=== PATIENT | female | born 1970 | race Caucasian/White ===

== ENCOUNTER 2018-01-03 17:58 | Inpatient (IN) | payer SELFPAY ==
[~2018-01-03] VITALS: Ht 177.8 cm; Wt 87.3 kg
[2018-01-03 17:57] VITALS: O2SAT 98
[~2018-01-03 17:58] MED LIST: LACTATED RINGER'S 1000 ML INJ 2,000 ML IV ONE; LIDOCAINE HCL 1% PF 5 ML SYRINGE OTHER ONE; NORMOSOL R INJ 1,000 ML IV ONE; PHENYLEPH/NS 1000 MCG/10 ML SYR IV ONE; PHENYLEPHRINE HCL 10 MG/ML VIAL IV ONE; PROPOFOL 200 MG/20 ML AMP IV ONE; ROCURONIUM INJ 50 MG/5 ML SYRINGE IV PUSH ONE; SODIUM CHLORIDE 0.9% 20 ML VIAL IV ONE; STERILE WATER FOR INJECTION 20 ML VIAL IV ONE; SUCCINYLCHOLINE CHLORIDE 100 MG/5 ML SYRINGE IV PUSH ONE; VECURONIUM BROMIDE 20 MG VIAL IV ONE; ePHEDrine/NS 25 MG/5 ML SYRINGE IV ONE
[2018-01-03] MEDS ORDERED: IOHEXOL 350 MG/ML 10 ML VIAL (for RAD DIAG) IVCONTRAST ONE (17:59)
[2018-01-03] MEDS ORDERED: ceFAZolin INJ 1,000 MG VIAL ONE (18:15)
[2018-01-03] MEDS ORDERED: VANCOMYCIN HCL 1000 MG VIAL ONE (18:15)
[2018-01-03] MEDS ORDERED: ceFAZolin 2 GM PREMIX 50 ML ONE (18:35)
[2018-01-03 18:40] LABS: AUTOMATED NEUTROPHIL # 11.9 TH/MM3 (1.8-7.7); BASOPHIL # 0.1 TH/MM3 (0-0.2); BASOPHIL % 0.4 % (0.0-2.0); EOSINOPHIL # 0.1 TH/MM3 (0-0.4); EOSINOPHIL % 0.4 % (0.0-4.0); HEMATOCRIT 42.7 % (35.0-46.0); HEMOGLOBIN 14.3 GM/DL (11.6-15.3); LYMPH % 21.7 % (9.0-44.0); LYMPHOCYTE # 3.5 TH/MM3 (1.0-4.8); MEAN CORPUSCULAR HEMOGLOBIN 34.1 PG (27.0-34.0); MEAN CORPUSCULAR HGB CONC 33.4 % (32.0-36.0); MEAN PLATELET VOLUME 10.2 FL (7.0-11.0); MONO % 4.9 % (0.0-8.0); MONOCYTE # 0.8 TH/MM3 (0-0.9); NEUT % 72.6 % (16.0-70.0); PLATELET COUNT 217 TH/MM3 (150-450); RED BLOOD COUNT 4.19 MIL/MM3 (4.00-5.30); RED CELL DISTRIBUTION WIDTH 12.7 % (11.6-17.2); WHITE BLOOD COUNT 16.4 TH/MM3 (4.0-11.0)
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
[2018-01-03 18:48] LABS: PROTHROMBIN TIME - PATIENT 9.8 SEC (9.8-11.6)
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
[2018-01-03] MEDS ORDERED: LIDOCAINE HCL 1% PF 5 ML AMPULE ONE (19:29)
[2018-01-03] MEDS ORDERED: VASOPRESSIN 20 UNITS/ML VIAL ONE (19:31)
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
[2018-01-03 19:44] LABS: HEMOGLOBIN 8.3 GM/DL (11.6-15.3)
[2018-01-03 19:51] LABS: INTERNATIONAL NORMALIZED RATIO 1.3 RATIO; PROTHROMBIN TIME - PATIENT 13.6 SEC (9.8-11.6)
[2018-01-03 19:55] LABS: BICARBONATE 20.6 MEQ/L (21.0-32.0); CALCIUM 8.4 MG/DL (8.5-10.1); CREATININE 0.6 MG/DL (0.50-1.00)
[2018-01-03] MEDS ORDERED: PHENYLEPHRINE HCL 10 MG/ML VIAL ONE (20:01)
[2018-01-03 20:30] VITALS: BP_SYST 118; BP_SYST 140; BP_DIAS 43; BP_DIAS 93; PULSE 132; RESP 20; TEMP 98.7; O2SAT 100
[2018-01-03] MEDS ORDERED: MIDAZOLAM HCL 2 MG/2 ML VIAL ONE (20:55)
[2018-01-03] MEDS ORDERED: PROPOFOL 500 MG/50 ML INJ 50 ML ONE (20:59)
[2018-01-03] MEDS ORDERED: PROPOFOL 1000 MG/100 ML INJ 100 ML IV PRN (21:00)
[2018-01-03] MEDS ORDERED: CLINDAMYCIN INJ 600 MG in SODIUM CHLORIDE 0.9% INJ 50 ML IV SCH (21:00)
[2018-01-03] MEDS ORDERED: Post-op Orders (for Pharmacy) XX ONE (21:00)
[2018-01-03] MEDS ORDERED: SODIUM CHLORIDE 0.9% FLUSH 10 ML FLUSH IV FLUSH PRN (21:00)
[2018-01-03] MEDS ORDERED: fentaNYL DRIP 250 ML IV PRN (21:00)
[2018-01-03] MEDS ORDERED: NALOXONE HCL 0.4 MG/ML AMP IV PUSH PRN (21:00)
[2018-01-03] MEDS: [UNRECOGNIZED DRUG - OTHER] OTHER SCH ×2 (21:15→21:30)
[2018-01-03 21:17] LABS: AUTOMATED NEUTROPHIL # 6.7 TH/MM3 (1.8-7.7); BASOPHIL % 0.4 % (0.0-2.0); EOSINOPHIL % 0.1 % (0.0-4.0); HEMATOCRIT 28.8 % (35.0-46.0); HEMOGLOBIN 9.9 GM/DL (11.6-15.3); LYMPH % 8.7 % (9.0-44.0); LYMPHOCYTE # 0.7 TH/MM3 (1.0-4.8); MEAN CELL VOLUME 88.7 FL (80.0-100.0); MEAN CORPUSCULAR HEMOGLOBIN 30.6 PG (27.0-34.0); MEAN CORPUSCULAR HGB CONC 34.5 % (32.0-36.0); MEAN PLATELET VOLUME 8.2 FL (7.0-11.0); MONO % 4.7 % (0.0-8.0); MONOCYTE # 0.4 TH/MM3 (0-0.9); NEUT % 86.1 % (16.0-70.0); PLATELET COUNT 88 TH/MM3 (150-450); RED BLOOD COUNT 3.25 MIL/MM3 (4.00-5.30); RED CELL DISTRIBUTION WIDTH 17.4 % (11.6-17.2); WHITE BLOOD COUNT 7.8 TH/MM3 (4.0-11.0)
[2018-01-03 21:26] LABS: INTERNATIONAL NORMALIZED RATIO 1.2 RATIO
[2018-01-03 21:55] LABS: ALKALINE PHOSPHATASE 56 U/L (45-117); ALT (GPT) 26 U/L (10-53); AST (GOT) 36 U/L (15-37); BICARBONATE 24.7 MEQ/L (21.0-32.0); BLOOD UREA NITROGEN 6 MG/DL (7-18); CALCIUM 10.5 MG/DL (8.5-10.1); CHLORIDE 106 MEQ/L (98-107); CREATININE 0.59 MG/DL (0.50-1.00); GLOMERULAR FILTRATION RATE 88 ML/MIN (>89); GLUCOSE,RANDOM 168 MG/DL (74-106); MAGNESIUM 1.9 MG/DL (1.5-2.5); PHOSPHORUS 5.8 MG/DL (2.5-4.9); SODIUM (NA) 147 MEQ/L (136-145); TOTAL BILIRUBIN ADULT 0.5 MG/DL (0.2-1.0)
[2018-01-03] MEDS ORDERED: NOREPINEPHRINE-DEXTROSE DRIP 250 ML IV ONE (21:56)
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
--- NOTE | 2018-01-03 21:59 | RADRPT ---
EXAM DATE/TIME: 01/03/2018 21:04 [facility] COMPARISON: No previous studies available for comparison. INDICATIONS : Post traumatic amputation. MEDICAL HISTORY : Unobtainable. SURGICAL HISTORY : Unobtainable. ENCOUNTER: Subsequent ACUITY: 1 day PAIN SCORE: Non-responsive. LOCATION: Left Femur. FINDINGS: 4 images of the left femur show a dictation at the distal diaphysis. A few small bone shards are seen just distal to the amputated femoral diaphysis. No retained foreign bodies otherwise. Left hip is un remarkable. CONCLUSION: Amputation of the distal femur as detailed above. Chaparro Reeves Jr., MD on January 03, 2018 at 21:56 Board Certified Radiologist. This report was verified electronically.
[2018-01-03 22:00] VITALS: PULSE 149
[2018-01-03] MEDS ORDERED: SODIUM CHLOR 0.9% 250 ML INJ 250 ML IV ONE (22:00)
[2018-01-03 22:01] LABS: BANDS 19 % (0-6); LYMPHOCYTES 8 % (9-44); METAMYELOCYTES 2 % (0-1); MONOCYTES 3 % (0-8); NEUTROPHIL # MANUAL DIFF 6.9 TH/MM3 (1.8-7.7); POLYS (SEG NEUTROPHILS) 68 % (16-70)
[2018-01-03] MEDS ORDERED: ICU - CALL ORDERING PHYSICIAN PRN (22:30)
[2018-01-03] MEDS ORDERED: ICU - SODIUM PHOSPHATE 30 MMOL/NS 250 ML IV PRN ×2 (22:30)
[2018-01-03] MEDS ORDERED: ICU - D/C ICU ELECTROLYTE ORDERS PRN (22:30)
[2018-01-03] MEDS ORDERED: ICU - MAGNESIUM OXIDE 400 MG TAB PO PRN (22:30)
[2018-01-03] MEDS ORDERED: ICU - MAGNESIUM SULFATE 4 GM/NS 100 ML IV PRN ×2 (22:30)
[2018-01-03] MEDS ORDERED: ICU - MAGNESIUM SULFATE 2 GM/NS 100 ML IV PRN ×2 (22:30)
[2018-01-03] MEDS ORDERED: ICU - POTASSIUM PHOSPHATE MONOBASIC 500 MG TAB PO PRN (22:30)
[2018-01-03] MEDS ORDERED: ICU - POTASSIUM PHOSPHATE 30 MMOL/NS 250 ML IV PRN ×2 (22:30)
[2018-01-03] MEDS ORDERED: POTASSIUM CHLORIDE 25 MEQ EFFERVESCENT TAB PO PRN (22:30)
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
[2018-01-03] MEDS: CLINDAMYCIN 600 MG/NS PREMIX 50 ML IV SCH (22:44)
[2018-01-03] MEDS: PANTOPRAZOLE SODIUM 40 MG VIAL IV PUSH SCH (22:45)
[2018-01-03] MEDS: SODIUM CHLORIDE 0.9% FLUSH 10 ML FLUSH IV FLUSH SCH (22:45)
[2018-01-03] MEDS: SODIUM CHLOR 0.9% 1000 ML INJ 1,000 ML IV SCH (22:46)
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
[2018-01-03] MEDS ORDERED: TERBUTALINE INJ 1 MG/ML AMP SQ PRN (23:00)
[2018-01-03] MEDS: fentaNYL DRIP 250 ML IV PRN (23:06)
[2018-01-03] MEDS: PROPOFOL 1000 MG/100 ML INJ 100 ML IV PRN (23:06)
[2018-01-03] MEDS: ICU - POTASSIUM CHLORIDE/AQUEOUS SOLN 20 MEQ/100 ML IVPB IV PRN (23:07)
[2018-01-03] MEDS: NOREPINEPHRINE-DEXTROSE DRIP 250 ML IV PRN (23:07)
[2018-01-04] VITALS (21 sets, daily range): BP systolic 93–122; BP diastolic 46–71; PULSE 95–126; RESP 19–50; TEMP 99.3–101.9; O2SAT 98–100
[2018-01-04] MEDS: ICU - POTASSIUM CHLORIDE/AQUEOUS SOLN 20 MEQ/100 ML IVPB IV PRN (02:17)
[2018-01-04] MEDS: PROPOFOL 1000 MG/100 ML INJ 100 ML IV PRN ×3 (03:28→10:08)
[2018-01-04] MEDS: SODIUM CHLOR 0.9% 1000 ML INJ 1,000 ML IV SCH ×3 (03:44→17:54)
[2018-01-04] MEDS: CLINDAMYCIN 600 MG/NS PREMIX 50 ML IV SCH (06:30)
[2018-01-04] MEDS ORDERED: RESP: ALBUTEROL 2.5 MG/IPRATROPIUM 0.5 MG NEB (PRN) NEB (07:15)
[2018-01-04] MEDS ORDERED: BISACODYL 10 MG SUPP RECTAL PRN (07:15)
[2018-01-04] MEDS ORDERED: CALCIUM CHLORIDE 10% SOLN 1 GRAM/10 ML SYR ONE ×3 (07:20→07:26)
[2018-01-04] MEDS ORDERED: SODIUM BICARBONATE 8.4% INJ 50 MEQ/50 ML SYR ONE ×2 (07:21→07:25)
[2018-01-04] MEDS: NOREPINEPHRINE-DEXTROSE DRIP 250 ML IV PRN ×3 (07:51→23:50)
[2018-01-04 08:25] LABS: HEMATOCRIT 21.9 % (35.0-46.0); HEMOGLOBIN 7.7 GM/DL (11.6-15.3); MEAN CELL VOLUME 88.1 FL (80.0-100.0); MEAN CORPUSCULAR HEMOGLOBIN 30.8 PG (27.0-34.0); MEAN PLATELET VOLUME 9.1 FL (7.0-11.0); PLATELET COUNT 74 TH/MM3 (150-450); RED BLOOD COUNT 2.49 MIL/MM3 (4.00-5.30); RED CELL DISTRIBUTION WIDTH 17.4 % (11.6-17.2); WHITE BLOOD COUNT 5.8 TH/MM3 (4.0-11.0)
[2018-01-04] MEDS: LACTULOSE SYRUP 20 GM/30 ML CUP PO SCH (09:00)
[2018-01-04] MEDS: RESP: ALBUTEROL 2.5 MG/IPRATROPIUM 0.5 MG NEB (SCH) NEB ×3 (09:03→20:40)
[2018-01-04 09:19] LABS: BICARBONATE 28.3 MEQ/L (21.0-32.0); CALCIUM 7.3 MG/DL (8.5-10.1); CREATININE 0.84 MG/DL (0.50-1.00)
[2018-01-04] MEDS: [UNRECOGNIZED DRUG - OTHER] OTHER SCH ×3 (09:30→23:53)
[2018-01-04 09:53] LABS: CALCIUM-PROTEIN CORRECTED 9.2 MG/DL (8.5-10.1); TOTAL PROTEIN 3.9 GM/DL (6.4-8.2)
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
[2018-01-04] MEDS: fentaNYL DRIP 250 ML IV PRN (10:08)
[2018-01-04] MEDS ORDERED: SODIUM CHLOR 0.9% 250 ML INJ 250 ML IV ONE (10:15)
[2018-01-04] MEDS ORDERED: MIDAZOLAM 100 MG/100 ML INJ 100 ML IV PRN (10:15)
[2018-01-04] MEDS ORDERED: GENTAMICIN 80 MG PREMIX 100 ML IV SCH (11:00)
[2018-01-04] MEDS ORDERED: BACITRACIN TOP OINT 15 GM TUBE TOPICAL PRN (11:45)
[2018-01-04] MEDS: GENTAMICIN INJ 80 MG in SODIUM CHLORIDE 0.9% INJ 100 ML IV SCH ×2 (13:14→20:54)
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
[2018-01-04] MEDS: MIDAZOLAM 50 MG/NS 50 ML DRIP Premix IV PRN (14:48)
[2018-01-04] MEDS: SODIUM CHLORIDE 0.9% FLUSH 10 ML FLUSH IV FLUSH SCH (19:36)
[2018-01-04] MEDS: CHLORHEXIDINE 0.12% (ORAL KIT) 15 ML CUP MT SCH (19:36)
[2018-01-04] MEDS: DOCUSATE SODIUM 50 MG/SENNA 8.6 MG TAB PO SCH ×2 (20:54→21:00)
[2018-01-04] MEDS: ACETAMINOPHEN 1000 MG/100 ML 100 ML IV PRN (20:54)
[2018-01-04] MEDS: PANTOPRAZOLE SODIUM 40 MG VIAL IV PUSH SCH (20:54)
[2018-01-04] MEDS ORDERED: SODIUM CHLOR 0.9% 1000 ML INJ 1,000 ML IV ONE ×2 (21:53→22:45)
[2018-01-04] MEDS ORDERED: ALBUMIN 5% INJ 500 ML IV ONE (23:00)
[2018-01-05] VITALS (20 sets, daily range): BP systolic 94–132; BP diastolic 46–82; PULSE 87–126; RESP 12–20; TEMP 100–102.2; O2SAT 97–100
[2018-01-05] MEDS: MIDAZOLAM 50 MG/NS 50 ML DRIP Premix IV PRN ×2 (02:22→14:54)
[2018-01-05] MEDS: RESP: ALBUTEROL 2.5 MG/IPRATROPIUM 0.5 MG NEB (SCH) NEB ×3 (03:59→20:26)
[2018-01-05 04:20] LABS: AUTOMATED NEUTROPHIL # 3.9 TH/MM3 (1.8-7.7); BASOPHIL % 0.6 % (0.0-2.0); EOSINOPHIL # 0.1 TH/MM3 (0-0.4); EOSINOPHIL % 1.4 % (0.0-4.0); HEMATOCRIT 23.4 % (35.0-46.0); HEMOGLOBIN 8.1 GM/DL (11.6-15.3); LYMPH % 18.6 % (9.0-44.0); MEAN CORPUSCULAR HEMOGLOBIN 30.3 PG (27.0-34.0); MEAN CORPUSCULAR HGB CONC 34.5 % (32.0-36.0); MEAN PLATELET VOLUME 9.1 FL (7.0-11.0); MONO % 6.7 % (0.0-8.0); MONOCYTE # 0.4 TH/MM3 (0-0.9); NEUT % 72.7 % (16.0-70.0); PLATELET COUNT 58 TH/MM3 (150-450); RED BLOOD COUNT 2.67 MIL/MM3 (4.00-5.30); RED CELL DISTRIBUTION WIDTH 17.3 % (11.6-17.2); WHITE BLOOD COUNT 5.3 TH/MM3 (4.0-11.0)
[2018-01-05] MEDS: ACETAMINOPHEN 1000 MG/100 ML 100 ML IV PRN (04:28)
[2018-01-05] MEDS: GENTAMICIN INJ 80 MG in SODIUM CHLORIDE 0.9% INJ 100 ML IV SCH ×3 (04:28→20:21)
[2018-01-05] MEDS: NOREPINEPHRINE-DEXTROSE DRIP 250 ML IV PRN ×4 (04:30→23:43)
[2018-01-05 04:57] LABS: BICARBONATE 26.4 MEQ/L (21.0-32.0); CALCIUM 6.8 MG/DL (8.5-10.1); CREATININE 0.63 MG/DL (0.50-1.00)
[2018-01-05 05:13] LABS: CALCIUM-PROTEIN CORRECTED 8.3 MG/DL (8.5-10.1); TOTAL PROTEIN 4.3 GM/DL (6.4-8.2)
[2018-01-05] MEDS: SODIUM CHLOR 0.9% 1000 ML INJ 1,000 ML IV SCH ×2 (05:22→17:52)
[2018-01-05] MEDS: ICU - POTASSIUM CHLORIDE/AQUEOUS SOLN 40 MEQ/100 ML IVPB IV PRN (05:22)
[2018-01-05] MEDS: [UNRECOGNIZED DRUG - OTHER] OTHER SCH (06:36)
[2018-01-05] MEDS: CHLORHEXIDINE 0.12% (ORAL KIT) 15 ML CUP MT SCH ×2 (07:38→20:21)
[2018-01-05] MEDS: SODIUM CHLORIDE 0.9% FLUSH 10 ML FLUSH IV FLUSH SCH ×2 (08:38→20:21)
[2018-01-05] MEDS: LACTULOSE SYRUP 20 GM/30 ML CUP PO SCH (08:38)
[2018-01-05] MEDS: FAMOTIDINE 20 MG TAB NG SCH ×2 (08:38→20:21)
[2018-01-05] MEDS: DOCUSATE SODIUM 50 MG/SENNA 8.6 MG TAB PO SCH ×2 (08:38→20:21)
[2018-01-05 09:07] LABS: BANDS 30 % (0-6); LYMPHOCYTES 23 % (9-44); MONOCYTES 2 % (0-8); POLYS (SEG NEUTROPHILS) 45 % (16-70)
[2018-01-05] MEDS ORDERED: SODIUM CHLOR 0.9% 250 ML INJ 250 ML IV ONE (09:45)
[2018-01-05] MEDS: ACETAMINOPHEN 650 MG/20.3 ML UDC PO PRN ×2 (12:26→20:21)
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
[2018-01-05] MEDS ORDERED: LACTATED RINGER'S 1000 ML IV PRN (22:45)
[2018-01-05] MEDS ORDERED: CHLORHEXIDINE GLUCONATE 2 % 1 PACK (2 CLOTHS) TOPICAL PRN (22:45)
[2018-01-05] MEDS ORDERED: METOPROLOL TARTRATE 25 MG TAB PO PRN (22:45)
[2018-01-05] MEDS ORDERED: POVIDONE IODINE 5% (ANTISEPSIS KIT) 4 APPLICATIONS EACH NARE PRN (22:45)
[2018-01-05] MEDS ORDERED: INSULIN HUMAN REGULAR 1,000 UNITS/10 ML VIAL SQ PRN (22:45)
[2018-01-05] MEDS ORDERED: SODIUM CHLORID 0.9% 500 ML IV PRN (22:45)
[2018-01-05] MEDS: fentaNYL DRIP 250 ML IV PRN (23:20)
[2018-01-06] VITALS (15 sets, daily range): BP systolic 88–129; BP diastolic 58–71; PULSE 87–114; RESP 12–16; TEMP 98.6–99.6; O2SAT 98–100
[2018-01-06] MEDS: MIDAZOLAM 50 MG/NS 50 ML DRIP Premix IV PRN ×2 (02:01→12:58)
[2018-01-06] MEDS: RESP: ALBUTEROL 2.5 MG/IPRATROPIUM 0.5 MG NEB (SCH) NEB ×4 (03:26→20:10)
[2018-01-06] MEDS: GENTAMICIN INJ 80 MG in SODIUM CHLORIDE 0.9% INJ 100 ML IV SCH ×3 (04:03→20:44)
[2018-01-06] MEDS: NOREPINEPHRINE-DEXTROSE DRIP 250 ML IV PRN ×2 (04:16→13:38)
[2018-01-06 05:19] LABS: AUTOMATED NEUTROPHIL # 4.1 TH/MM3 (1.8-7.7); BASOPHIL % 0.2 % (0.0-2.0); EOSINOPHIL # 0.1 TH/MM3 (0-0.4); EOSINOPHIL % 2.1 % (0.0-4.0); HEMATOCRIT 29.6 % (35.0-46.0); HEMOGLOBIN 10.3 GM/DL (11.6-15.3); LYMPH % 12.8 % (9.0-44.0); LYMPHOCYTE # 0.7 TH/MM3 (1.0-4.8); MEAN CELL VOLUME 88.6 FL (80.0-100.0); MEAN CORPUSCULAR HEMOGLOBIN 30.8 PG (27.0-34.0); MEAN CORPUSCULAR HGB CONC 34.8 % (32.0-36.0); MEAN PLATELET VOLUME 8.4 FL (7.0-11.0); MONO % 6.2 % (0.0-8.0); MONOCYTE # 0.3 TH/MM3 (0-0.9); NEUT % 78.7 % (16.0-70.0); PLATELET COUNT 81 TH/MM3 (150-450); RED BLOOD COUNT 3.34 MIL/MM3 (4.00-5.30); RED CELL DISTRIBUTION WIDTH 16.1 % (11.6-17.2); WHITE BLOOD COUNT 5.2 TH/MM3 (4.0-11.0)
--- NOTE | 2018-01-06 05:51 | RADRPT ---
EXAM DATE/TIME: 01/06/2018 04:58 [facility] COMPARISON: CHEST SINGLE AP, January 03, 2018, 21:00. INDICATIONS : Shortness of breath MEDICAL HISTORY : Unobtainable. SURGICAL HISTORY : Unobtainable. ENCOUNTER: Subsequent ACUITY: 3 days PAIN SCORE: Non-responsive. LOCATION: Bilateral chest FINDINGS: A single view of the chest demonstrates endotracheal tube in good position. NG coiled in stomach. Pranay ateral mostly basilar airspace disease has developed since January 03. The left central line tip in super ior vena cava. CONCLUSION: Support apparatus in good position. Bilateral mostly basilar airspace disease has developed since January 03. Joel Meyers MD on January 06, 2018 at 5:46 Board Certified Radiologist. This report was verified electronically.
[2018-01-06 05:52] LABS: BICARBONATE 28.5 MEQ/L (21.0-32.0); CALCIUM 7.9 MG/DL (8.5-10.1); CREATININE 0.56 MG/DL (0.50-1.00); MAGNESIUM 1.8 MG/DL (1.5-2.5)
[2018-01-06] MEDS: SODIUM CHLOR 0.9% 1000 ML INJ 1,000 ML IV SCH (06:00)
[2018-01-06] MEDS: ICU - POTASSIUM CHLORIDE/AQUEOUS SOLN 40 MEQ/100 ML IVPB IV PRN (06:35)
--- NOTE | 2018-01-06 07:22 | PD.ORT.PN ---
Subjective Subjective Remarks s/p MCA left above knee amputation left olecranon fx intubated Objective Vitals Vital Signs Date Time Temp Pulse Resp B/P (MAP) Pulse Ox O2 Delivery O2 Flow Rate FiO2 01/06/18 04:16 92 94/72 01/06/18 04:02 99 30 01/06/18 04:00 99.5 88 12 88/68 (75) 100 01/06/18 04:00 30 01/06/18 00:07 99 30 01/06/18 00:00 99.5 87 12 95/71 (79) 98 01/06/18 00:00 30 01/05/18 23:43 92 88/66 01/05/18 20:26 98 30 01/05/18 20:00 30 01/05/18 20:00 106 01/05/18 20:00 101.3 124 16 113/82 (92) 99 01/05/18 18:27 114 95/64 01/05/18 18:00 114 01/05/18 16:53 98 30 01/05/18 16:00 40 01/05/18 16:00 115 01/05/18 16:00 100.0 115 12 132/63 (86) 99 01/05/18 14:30 100.0 119 16 107/50 99 01/05/18 14:05 100.3 117 14 105/47 97 01/05/18 14:00 119 01/05/18 13:50 102.2 120 15 94/46 97 01/05/18 13:26 15 01/05/18 12:00 126 01/05/18 12:00 102.0 126 14 121/63 (82) 100 01/05/18 12:00 40 01/05/18 12:00 129 117/55 01/05/18 11:47 100 40 01/05/18 10:00 119 01/05/18 08:00 106 01/05/18 08:00 100.1 104 12 122/54 (76) 100 01/05/18 08:00 30 01/05/18 07:54 100 30 01/05/18 07:54 30 I/O 01/05/18 01/05/18 01/05/18 01/06/18 01/06/18 01/06/18 07:00 15:00 23:00 07:00 15:00 23:00 Intake Total 2452 ml 1027 ml 1547 ml 2062 ml Output Total 1150 ml 2000 ml 2475 ml Balance 1302 ml 1027 ml -453 ml -413 ml Intake IV Total 2452 ml 400 ml 1547 ml 2002 ml Packed Cells 400 ml Platelets 187 ml Blood Product IV Normal Saline Flush 40 ml Tube Irrigant 60 ml Output Urine Total 950 ml 1850 ml 2250 ml Gastric Drainage Total 0 ml 50 ml Drainage Total 200 ml 150 ml 175 ml # Bowel Movements 0 0 0 Result Diagram: 01/06/1850901/06/18509 Imaging Last 24 hours Impressions Chest X-Ray 01/06/18 06 Signed Impressions: Service Date/Time: Saturday, January 06, 2018 04:58 - CONCLUSION: Support apparatus in good position. Bilateral mostly basilar airspace disease has developed since January 03. Joel Meyers MD Objective Remarks LUE: +long arm splint. intact. +cap refill. LLE: +AKA. +vac. good seal Assessment & Plan Assessment and Plan 1) Left Olecranon Fx -npo -consents -surgery today with Romano or ORIf left olecranon 2) Left AKA -managed by Dr Pelon Do,Angel Dempsey PA/Secondary Teacher XAVIER January 06, 2018 07:22
[2018-01-06] MEDS: CHLORHEXIDINE 0.12% (ORAL KIT) 15 ML CUP MT SCH ×2 (07:49→20:44)
[2018-01-06 07:50] LABS: BANDS 29 % (0-6); LYMPHOCYTES 16 % (9-44); MONOCYTES 2 % (0-8); NEUTROPHIL # MANUAL DIFF 4.2 TH/MM3 (1.8-7.7); POLYS (SEG NEUTROPHILS) 52 % (16-70)
[2018-01-06] MEDS: SODIUM CHLORIDE 0.9% FLUSH 10 ML FLUSH IV FLUSH SCH ×2 (08:20→20:45)
[2018-01-06] MEDS: DOCUSATE SODIUM 50 MG/SENNA 8.6 MG TAB PO SCH ×2 (08:20→20:44)
[2018-01-06] MEDS: FAMOTIDINE 20 MG TAB NG SCH ×2 (08:20→20:44)
[2018-01-06] MEDS: LACTULOSE SYRUP 20 GM/30 ML CUP PO SCH (08:20)
[2018-01-06] MEDS ORDERED: ceFAZolin INJ 1,000 MG VIAL ONE (09:01)
[2018-01-06] MEDS ORDERED: GENTAMICIN SULFATE 80 MG/2 ML VIAL ONE ×2 (09:02→10:39)
[2018-01-06] MEDS ORDERED: KETAMINE HCL 500 MG/10 ML VIAL ONE (10:12)
[2018-01-06] MEDS ORDERED: VANCOMYCIN HCL 1000 MG VIAL ONE (10:39)
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
[2018-01-06] MEDS ORDERED: MIDAZOLAM HCL 2 MG/2 ML VIAL ONE (12:40)
[2018-01-06] MEDS: fentaNYL DRIP 250 ML IV PRN (12:57)
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
--- NOTE | 2018-01-06 18:26 | EKG ---
Date Performed: 01/06/2018 Time Performed: 05:31:24 PTAGE: 47 years EKG: Sinus rhythm with PVC(s). Ant/septal and lateral ST-T changes are nonspecific Borderline ECG NO PREVIOUS TRACING DOCTOR: Artie Suero Interpretating Date/Time 01/06/2018 18:24:35
[2018-01-07] VITALS (20 sets, daily range): BP systolic 119–125; BP diastolic 57–69; PULSE 101–130; RESP 8–20; TEMP 98.9–100.2; O2SAT 95–100
[2018-01-07] MEDS: GENTAMICIN INJ 80 MG in SODIUM CHLORIDE 0.9% INJ 100 ML IV SCH ×3 (03:23→20:20)
[2018-01-07] MEDS: RESP: ALBUTEROL 2.5 MG/IPRATROPIUM 0.5 MG NEB (SCH) NEB ×4 (03:33→22:00)
[2018-01-07 04:48] LABS: HEMATOCRIT 29.9 % (35.0-46.0); HEMOGLOBIN 10.2 GM/DL (11.6-15.3); MEAN CORPUSCULAR HEMOGLOBIN 30.2 PG (27.0-34.0); MEAN PLATELET VOLUME 8.8 FL (7.0-11.0); PLATELET COUNT 81 TH/MM3 (150-450); RED BLOOD COUNT 3.36 MIL/MM3 (4.00-5.30); RED CELL DISTRIBUTION WIDTH 16.2 % (11.6-17.2); WHITE BLOOD COUNT 4.7 TH/MM3 (4.0-11.0)
[2018-01-07 05:35] LABS: BICARBONATE 29.4 MEQ/L (21.0-32.0); CALCIUM 7.7 MG/DL (8.5-10.1); CREATININE 0.5 MG/DL (0.50-1.00)
[2018-01-07] MEDS: fentaNYL DRIP 250 ML IV PRN (05:49)
--- NOTE | 2018-01-07 06:16 | RADRPT ---
EXAM DATE/TIME: 01/07/2018 05:09 [facility] COMPARISON: CHEST SINGLE AP, January 06, 2018, 4:58. INDICATIONS : Short of breath. MEDICAL HISTORY : None. SURGICAL HISTORY : None. ENCOUNTER: Subsequent ACUITY: 4 - 6 days PAIN SCORE: Non-responsive. LOCATION: Bilateral chest FINDINGS: Left central line in superior vena cava. Endotracheal tube in good position. Bilateral mostly basilar airspace disease, left greater than right with small effusions. No pneumothorax. CONCLUSION: 1. Basilar airspace consolidation, left greater than right with small effusions. Joel Meyers MD on January 07, 2018 at 6:11 Board Certified Radiologist. This report was verified electronically.
--- NOTE | 2018-01-07 06:58 | PD.ORT.PN ---
Subjective Subjective Remarks s/p I&D and vac application left olecranon fx intubated. no changes Objective Vitals Vital Signs Date Time Temp Pulse Resp B/P (MAP) Pulse Ox O2 Delivery O2 Flow Rate FiO2 01/07/18 04:35 100 30 01/07/18 04:00 30 01/07/18 04:00 100.2 125 16 119/60 (79) 100 01/07/18 01:34 100 30 01/07/18 00:10 100 30 01/07/18 00:00 30 01/07/18 00:00 98.9 119 16 125/57 (79) 100 Arterial Line 01/06/18 20:06 100 30 01/06/18 20:00 99.6 114 16 129/62 (84) 100 01/06/18 20:00 30 01/06/18 18:00 114 01/06/18 16:16 100 30 01/06/18 16:00 30 01/06/18 16:00 98.6 111 16 120/58 (78) 100 01/06/18 16:00 109 01/06/18 14:10 101 01/06/18 13:38 93 150/64 01/06/18 13:19 99 30 01/06/18 10:00 107 01/06/18 09:50 100 100 01/06/18 08:00 30 01/06/18 08:00 91 01/06/18 08:00 99.6 91 12 89/69 (76) 100 01/06/18 07:25 100 30 I/O 01/06/18 01/06/18 01/06/18 01/07/18 01/07/18 01/07/18 07:00 15:00 23:00 07:00 15:00 23:00 Intake Total 2062 ml 250 ml 202 ml 252 ml Output Total 2475 ml 50 ml 2850 ml 1350 ml Balance -413 ml 200 ml -2648 ml -1098 ml Intake IV Total 2002 ml 202 ml 252 ml Tube Irrigant 60 ml Other 250 ml Output Urine Total 2250 ml 2850 ml 1100 ml Gastric Drainage Total 50 ml Drainage Total 175 ml 250 ml Estimated Blood Loss 50 ml # Bowel Movements 0 0 0 Result Diagram: 01/07/1841501/07/18415 Imaging Last 24 hours Impressions Chest X-Ray 01/06/18 0600 Signed Impressions: Service Date/Time: Saturday, January 06, 2018 04:58 - CONCLUSION: Support apparatus in good position. Bilateral mostly basilar airspace disease has developed since January 03. Joel Meyers MD Objective Remarks LUE: +long arm splint. intact. +cap refill. +vac. good seal. LLE: +AKA. +vac. good seal Assessment & Plan Assessment and Plan 1) Left Olecranon Fx -npo after [place] -sign consents -plan for OR tomorrow for ORIF of olecranon 2) Left AKA -managed by Dr Pelon Do,Angel Dempsey PA/[employer] January 07, 2018 06:58
[2018-01-07 07:00] LABS: BANDS 17 % (0-6); BASOPHILS 1 % (0-2); DOHLE BODIES PRESENT (NONE SEEN); LYMPHOCYTES 9 % (9-44); MONOCYTES 5 % (0-8); NEUTROPHIL # MANUAL DIFF 3.8 TH/MM3 (1.8-7.7); POLYS (SEG NEUTROPHILS) 64 % (16-70)
[2018-01-07] MEDS: SODIUM CHLORIDE 0.9% FLUSH 10 ML FLUSH IV FLUSH SCH ×2 (08:33→21:00)
[2018-01-07] MEDS: DOCUSATE SODIUM 50 MG/SENNA 8.6 MG TAB PO SCH ×2 (08:33→21:00)
[2018-01-07] MEDS: LACTULOSE SYRUP 20 GM/30 ML CUP PO SCH (08:33)
[2018-01-07] MEDS: FAMOTIDINE 20 MG TAB NG SCH ×2 (08:33→21:00)
[2018-01-07] MEDS: CHLORHEXIDINE 0.12% (ORAL KIT) 15 ML CUP MT SCH ×2 (08:33→20:20)
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
--- NOTE | 2018-01-07 11:25 | MP ---
cc: Hansel Mcdaniels MD DATE OF OPERATION: 01/06/2018 PREOPERATIVE DIAGNOSIS: Status post traumatic above-knee amputation. POSTOPERATIVE DIAGNOSIS: Status post traumatic above-knee amputation. OPERATIVE PROCEDURE: Revision of the left above-knee amputation with skin closure and advancement of flaps. SURGEON: Dr. Mcdaniels. ANESTHESIA: General. ESTIMATED BLOOD LOSS: 100 mL. DESCRIPTION OF THE PROCEDURE: The patient prepped and draped in the usual fashion. The previous guillotine amputation is exposed and is examined. The patient has very viable tissues and muscle was fine. The superficial femoral artery was ligated just distal to the most proximal fracture of the femur above the knee and it seems to be pulsatile and there are a number of branches coming off of it, so this part is fine. The vein seems to be patent as well. The muscle bundles are examined and now the stump is irrigated with copious amounts of saline, about 5 liters using pulse chair mender. A very small amount of debris is present and this is cleaned out nicely. This is now a very nice clean tissue plane. Skin is now observed. Some of the edges of the skin appeared to be nonviable. In addition, a portion of the skin measuring about 4 x 3 inches at the bottom is equally purple and ischemic, demarcating. These are debrided with a 10 blade sharply and based on the defect present, a decision is made how to close this. The skin is advanced as a flap over the bottom of the stump and then to the medial end. There is one area in the anterior portion of the thigh measuring about 5 x 2 inches, which cannot be covered by anything at this point and therefore we will place a wound VAC on this. The stump is now covered by placing several 0 Vicryl stitches to attach the skin to the surfaces of the muscle and then the rest of the skin was approximated with interrupted 2-0 Prolene. The remaining area of the medial aspect of the thigh is covered with the wound VAC. Dressing was applied. Patient will be taken to the operating room several more times for washouts and additional debridements and I am pretty sure that at least some of the skin will demarcate in next few days considering that there appears slightly dusky already so chances are patient will need wound VAC for a while to prepare this area for eventual skin grafting The patient tolerated the procedure well. MD RIZWAN Vega , 11:04 AM , 11:24 AM [facility]
[2018-01-07] MEDS ORDERED: ALPRAZolam 0.25 MG TAB PO ONE (11:45)
[2018-01-07] MEDS: ACETAMINOPHEN 1000 MG/100 ML 100 ML IV SCH ×2 (12:08→17:35)
[2018-01-07] MEDS: MORPHINE SULFATE 4 MG/ML INJ IV PUSH PRN (22:41)
[2018-01-08] VITALS (8 sets, daily range): BP systolic 114–148; BP diastolic 58–87; PULSE 91–117; RESP 18–28; TEMP 98.2–99; O2SAT 93–100
[2018-01-08] MEDS: RESP: ALBUTEROL 2.5 MG/IPRATROPIUM 0.5 MG NEB (SCH) NEB ×2 (04:00→08:43)
[2018-01-08] MEDS: GENTAMICIN INJ 80 MG in SODIUM CHLORIDE 0.9% INJ 100 ML IV SCH ×3 (04:47→20:55)
[2018-01-08] MEDS: ACETAMINOPHEN 1000 MG/100 ML 100 ML IV SCH ×2 (05:08)
[2018-01-08 06:41] LABS: AUTOMATED NEUTROPHIL # 4.1 TH/MM3 (1.8-7.7); BASOPHIL % 0.2 % (0.0-2.0); EOSINOPHIL # 0.1 TH/MM3 (0-0.4); EOSINOPHIL % 1.6 % (0.0-4.0); HEMATOCRIT 26.9 % (35.0-46.0); HEMOGLOBIN 9.2 GM/DL (11.6-15.3); LYMPH % 7.1 % (9.0-44.0); LYMPHOCYTE # 0.4 TH/MM3 (1.0-4.8); MEAN CORPUSCULAR HEMOGLOBIN 30.4 PG (27.0-34.0); MEAN CORPUSCULAR HGB CONC 34.1 % (32.0-36.0); MEAN PLATELET VOLUME 8.5 FL (7.0-11.0); MONO % 10.6 % (0.0-8.0); MONOCYTE # 0.5 TH/MM3 (0-0.9); NEUT % 80.5 % (16.0-70.0); PLATELET COUNT 101 TH/MM3 (150-450); RED BLOOD COUNT 3.02 MIL/MM3 (4.00-5.30); RED CELL DISTRIBUTION WIDTH 15.7 % (11.6-17.2); WHITE BLOOD COUNT 5.1 TH/MM3 (4.0-11.0)
--- NOTE | 2018-01-08 06:52 | PD.ORT.PN ---
Subjective Subjective Remarks Ready for transport to OR Objective Vitals Vital Signs Date Time Temp Pulse Resp B/P (MAP) Pulse Ox O2 Delivery O2 Flow Rate FiO2 01/08/18 06:00 99 01/08/18 04:00 100 01/08/18 04:00 99.0 100 28 119/87 (98) 100 01/08/18 02:00 105 01/08/18 00:00 98.9 95 25 114/58 (76) 100 01/08/18 00:00 95 01/07/18 22:46 17 01/07/18 22:00 101 01/07/18 20:10 100 AERO F/M 5.00 28 01/07/18 20:00 99.6 108 20 121/62 (81) 97 01/07/18 20:00 108 01/07/18 18:00 126 01/07/18 17:58 95 Aerosol Mask 5.00 28 01/07/18 17:25 99 Nasal Cannula 4 01/07/18 17:25 99 Nasal Cannula 4.00 01/07/18 16:13 98 30 01/07/18 16:00 30 01/07/18 16:00 113 01/07/18 16:00 99.2 113 11 122/59 (80) 98 01/07/18 14:00 109 01/07/18 12:50 96 30 01/07/18 12:00 127 01/07/18 12:00 30 01/07/18 12:00 100.0 127 12 120/69 (86) 98 01/07/18 10:18 99 30 01/07/18 10:00 130 01/07/18 08:03 30 01/07/18 08:03 99 30 01/07/18 08:00 30 01/07/18 08:00 99.8 123 8 124/61 (82) 99 01/07/18 08:00 123 I/O 01/07/18 01/07/18 01/07/18 01/08/18 01/08/18 01/08/18 07:00 15:00 23:00 07:00 15:00 23:00 Intake Total 252 ml 702 ml 100 ml Output Total 1350 ml 1050 ml 1650 ml Balance -1098 ml 702 ml -950 ml -1650 ml Intake IV Total 252 ml 302 ml 100 ml Packed Cells 400 ml Output Urine Total 1100 ml 1050 ml 1500 ml Drainage Total 250 ml 150 ml # Bowel Movements 0 0 0 Result Diagram: 01/08/1861901/07/18 0416 Imaging Last 24 hours Impressions Chest X-Ray 01/06/18 0600 Signed Impressions: Service Date/Time: Saturday, January 06, 2018 04:58 - CONCLUSION: Support apparatus in good position. Bilateral mostly basilar airspace disease has developed since January 03. Joel Meyers MD Objective Remarks LUE: +long arm splint. intact. +cap refill. +vac. good seal. LLE: +AKA. +vac. good seal Assessment & Plan Assessment and Plan 1) Left Olecranon Fx I&D POD 2 -npo -sign consents - ORIF of olecranon this morning 2) Left AKA -managed by Dr Pelon Blake,David PARK January 08, 2018 06:52
[2018-01-08] MEDS ORDERED: SODIUM CHLOR 0.9% 250 ML INJ 250 ML ONE (06:57)
[2018-01-08] MEDS ORDERED: VANCOMYCIN HCL 1000 MG VIAL ONE (06:57)
[2018-01-08] MEDS ORDERED: GENTAMICIN SULFATE 80 MG/2 ML VIAL ONE (06:57)
[2018-01-08 07:09] LABS: ALBUMIN 1.7 GM/DL (3.4-5.0); ALT (GPT) 18 U/L (10-53); AST (GOT) 29 U/L (15-37); BICARBONATE 28.6 MEQ/L (21.0-32.0); BLOOD UREA NITROGEN 4 MG/DL (7-18); CALCIUM 8.2 MG/DL (8.5-10.1); CHLORIDE 102 MEQ/L (98-107); CREATININE 0.32 MG/DL (0.50-1.00); GLOMERULAR FILTRATION RATE 220 ML/MIN (>89); GLUCOSE,RANDOM 86 MG/DL (74-106); SODIUM (NA) 141 MEQ/L (136-145)
[2018-01-08 07:11] LABS: ALKALINE PHOSPHATASE 56 U/L (45-117); TOTAL BILIRUBIN ADULT 0.6 MG/DL (0.2-1.0); TOTAL PROTEIN 4.9 GM/DL (6.4-8.2)
[2018-01-08] MEDS: CHLORHEXIDINE 0.12% (ORAL KIT) 15 ML CUP MT SCH (08:00)
[2018-01-08] MEDS ORDERED: Post-op Orders (for Pharmacy) XX ONE (08:45)
--- NOTE | 2018-01-08 08:47 | PD.OP ---
cc: Asael Dye MD Operative Report Date of Surgery: January 08, 2018 Preoperative Diagnosis: Open laceration left forearm, comminuted left olecranon fracture Postoperative Diagnosis: Procedure: Closure of left forearm laceration, open reduction internal fixation left olecranon Anesthesia: General Surgeon: Asael Dye Bulk Plant Supervisor(s): SANDEEP Horn PA-C The surgical procedure was assisted by my physician criminal legal assistant. My P.A. presence was necessary throughout this case for the manipulation and positioning of the surgical extremity. My P.A. was assisting me throughout the duration of this procedure. The skill set of a physician criminal legal assistant was medically necessary to complete this procedure. During the surgical case the surgical dressing maker was working at the back table and the physician criminal legal assistant was directly assisting me. Operation and Findings: Patient was seen and evaluated preoperatively. Patient was found to have a displaced left intra-articular olecranon fracture. She also had a grossly contaminated left forearm laceration. This laceration was previously debrided and treated with VAC dressing. The risk and benefits of the surgery were discussed in depth and informed consent was obtained. Risk of surgery include bleeding, infection, painful hardware, wound, case, elbow stiffness, loss of motion, elbow arthritis, injuries to arteries nerves or blood vessels, weakness and numbness of hand, as well as medical complications associated with general anesthesia. All questions were answered. Patient was brought to operating room. IV sedation and anesthesia were administered. Patient was placed into a lateral decubitus position. Timeout procedure was performed. IV antibiotics were administered prior to incision. The left arm was prepped with alcohol followed by Hibiclens and draped in usual sterile fashion. Procedure began with debridement of the forearm laceration. Overall the form laceration was now clean with no gross contamination. Curettes were used to debride the edges of the wound. The wound was now thoroughly irrigated with 3 L of sterile saline. Wound appeared to be very clean at this time. Next attention was turned towards the olecranon fracture. A 4 inch incision over the olecranon. Subcutaneous tissue dissected with Bovie. Fracture site was visualized. Fascia was elevated around the fracture site. There was mild comminution of the fracture site. Fracture fragments were gently manipulated. A fracture tenaculum was used to aid in reduction. Multiple K wires result provisional fixation. A Synthes proximal plate was selected. Plate was provisionally held with K wires 3.5 cortical screws were used to compress plate to bone. Multiple cortical screws were placed in the ulna shaft. Multiple locking screws were placed in the proximal ulna. All screws were predrilled and premeasured for appropriate length. K wires were removed. Final fluoroscopy revealed excellent of fractures well-placed hardware. Articular surface appeared to be in near anatomic alignment. Wound was now thoroughly irrigated. Incision was now closed with #0 PDS, 3-0 PDS, and ivan. Next the traumatic laceration was closed. Subcutaneous tissue was reapproximated with 3-0 PDS. Skin was closed with 3-0 nylon. A combination of retention suture and vertical mattress suture were utilized. The skin edges were well approximated with minimal skin tension. Sterile dressings were applied. Patient's placed a well molded well-padded splint. Patient was transferred to recovery in stable condition. Asael Dye MD January 08, 2018 08:47
[2018-01-08] MEDS: FAMOTIDINE 20 MG TAB NG SCH ×2 (09:00→20:55)
[2018-01-08] MEDS: DOCUSATE SODIUM 50 MG/SENNA 8.6 MG TAB PO SCH ×2 (09:00→20:56)
[2018-01-08] MEDS: LACTULOSE SYRUP 20 GM/30 ML CUP PO SCH (09:00)
[2018-01-08] MEDS: SODIUM CHLORIDE 0.9% FLUSH 10 ML FLUSH IV FLUSH SCH ×2 (09:00→20:57)
[2018-01-08] MEDS ORDERED: DO NOT ADM ANY ANTICOAGULANT DRUGS PRN (09:19)
[2018-01-08] MEDS ORDERED: MIDAZOLAM HCL 2 MG/2 ML VIAL ONE (09:23)
[2018-01-08] MEDS ORDERED: *morphine SULFATE 8 MG/ML PERIprocedure ONLY ONE (09:24)
[2018-01-08] MEDS ORDERED: *morphine SULFATE 4 MG/ML PERIprocedure ONLY ONE (10:04)
[2018-01-08] MEDS ORDERED: PROPOFOL 200 MG/20 ML AMP IV ONE (12:00)
[2018-01-08] MEDS ORDERED: GLYCOPYRROLATE 1 MG/5 ML SYRINGE IV PUSH ONE (12:00)
[2018-01-08] MEDS ORDERED: LIDOCAINE HCL 1% PF 5 ML SYRINGE OTHER ONE (12:00)
[2018-01-08] MEDS ORDERED: NEOSTIGMINE 5 MG/5 ML SYRINGE IV PUSH ONE (12:00)
[2018-01-08] MEDS ORDERED: ROCURONIUM INJ 50 MG/5 ML SYRINGE IV PUSH ONE (12:00)
[2018-01-08] MEDS ORDERED: ONDANSETRON HCL 4 MG/2 ML VIAL IV ONE (12:00)
[2018-01-08] MEDS ORDERED: DEXAMETHASONE SOD PHOS 4 MG/ML VIAL IV ONE (12:00)
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
[2018-01-08] MEDS: CHOLECALCIFEROL (VIT D3) 1000 UNIT TAB PO SCH (13:26)
[2018-01-08] MEDS ORDERED: POTASSIUM CHLORIDE 10 MEQ CONTROLLED RELEASE TAB PO ONE (13:30)
[2018-01-08] MEDS ORDERED: ceFAZolin 2 GM PREMIX 50 ML IV SCH (14:00)
--- NOTE | 2018-01-08 14:04 | RADRPT ---
EXAM DATE/TIME: 01/08/2018 08:29 [facility] COMPARISON: FLUOROSCOPY PORTABLE UP TO 1HR, January 08, 2018, 0:00. INDICATIONS : ORIF left elbow fracture. MEDICAL HISTORY : Unobtainable. SURGICAL HISTORY : Unobtainable. ENCOUNTER: Subsequent ACUITY: 4 - 6 days PAIN SCORE: Non-responsive. LOCATION: Left elbow. FINDINGS: The patient is post ORIF of an olecranon fracture. The alignment of the fracture post plating is exce llent. CONCLUSION: 1. Excellent alignment of the patient's left olecranon fracture post plating. Franco Bello MD on January 08, 2018 at 14:01 Board Certified Radiologist. This report was verified electronically.
[2018-01-08] MEDS: ENOXAPARIN SODIUM 30 MG/0.3 ML SYRINGE SQ SCH (15:00)
[2018-01-08] MEDS: GABAPENTIN 300 MG CAP PO SCH ×2 (15:01→17:46)
[2018-01-08] MEDS ORDERED: GENTAMICIN 80 MG PREMIX 100 ML IV SCH (16:00)
[2018-01-09] VITALS (8 sets, daily range): BP systolic 112–143; BP diastolic 59–68; PULSE 97–108; RESP 17–18; TEMP 98–99.1; O2SAT 90–94
[2018-01-09] MEDS: ENOXAPARIN SODIUM 30 MG/0.3 ML SYRINGE SQ SCH ×2 (03:18→14:16)
[2018-01-09] MEDS: GENTAMICIN INJ 80 MG in SODIUM CHLORIDE 0.9% INJ 100 ML IV SCH ×2 (03:55→16:00)
[2018-01-09 04:03] LABS: BASOPHIL % 0.1 % (0.0-2.0); EOSINOPHIL % 0.1 % (0.0-4.0); HEMATOCRIT 26.6 % (35.0-46.0); LYMPH % 8.7 % (9.0-44.0); LYMPHOCYTE # 0.4 TH/MM3 (1.0-4.8); MEAN CORPUSCULAR HEMOGLOBIN 30.2 PG (27.0-34.0); MEAN PLATELET VOLUME 8.8 FL (7.0-11.0); MONO % 9.8 % (0.0-8.0); MONOCYTE # 0.5 TH/MM3 (0-0.9); NEUT % 81.3 % (16.0-70.0); PLATELET COUNT 170 TH/MM3 (150-450); RED BLOOD COUNT 2.99 MIL/MM3 (4.00-5.30); RED CELL DISTRIBUTION WIDTH 15.5 % (11.6-17.2); WHITE BLOOD COUNT 4.9 TH/MM3 (4.0-11.0)
[2018-01-09 04:24] LABS: BICARBONATE 32.5 MEQ/L (21.0-32.0); CALCIUM 8.3 MG/DL (8.5-10.1); CREATININE 0.56 MG/DL (0.50-1.00)
--- NOTE | 2018-01-09 06:30 | PD.ORT.PN ---
Subjective Subjective Remarks POD 1 s/p ORIF left olecranon fx doing well. reports soreness but overall resting comfortably Objective Vitals Vital Signs Date Time Temp Pulse Resp B/P (MAP) Pulse Ox O2 Delivery O2 Flow Rate FiO2 01/09/18 04:00 98.2 97 17 135/60 (85) 94 01/09/18 00:00 99.1 108 17 130/68 (88) 92 01/08/18 20:07 93 Nasal Cannula 3.00 01/08/18 20:00 98.2 117 20 140/70 (93) 97 01/08/18 12:00 98.3 104 18 131/60 (83) 93 01/08/18 10:25 98.7 91 18 148/73 (98) 97 01/08/18 10:00 108 14 172/71 (104) 98 Nasal Cannula 3 01/08/18 09:45 109 14 143/62 (89) 97 Nasal Cannula 3 01/08/18 09:30 100 14 152/71 (98) 99 Nasal Cannula 3 01/08/18 09:14 98.2 130 14 141/72 (95) 94 Nasal Cannula 3 01/08/18 06:55 98.9 104 16 135/59 (84) 97 01/08/18 06:55 97 Nasal Cannula 3 I/O 01/08/18 01/08/18 01/08/18 01/09/18 01/09/18 01/09/18 07:00 15:00 23:00 07:00 15:00 23:00 Intake Total 300 ml 200 ml 1000 ml Output Total 1650 ml 75 ml 2300 ml Balance -1650 ml 225 ml 200 ml -1300 ml Intake Oral 1000 ml IV Total 200 ml Other 300 ml Output Urine Total 1500 ml 2300 ml Drainage Total 150 ml Estimated Blood Loss 75 ml # Bowel Movements 0 Result Diagram: 01/09/188 01/09/18 032 Imaging Last 24 hours Impressions Chest X-Ray 01/06/18 06 Signed Impressions: Service Date/Time: Saturday, January 06, 2018 04:58 - CONCLUSION: Support apparatus in good position. Bilateral mostly basilar airspace disease has developed since January 03. Joel Meyers MD Objective Remarks LUE: +long arm splint. intact. +cap refill. nvi LLE: +AKA. +vac. good seal Assessment & Plan Assessment and Plan 1) Left Olecranon Fx s/p ORIF - POD 1 -maintain splint -intact -NWB -ortho surgeries complete 2) Left AKA -managed by Dr Pelon Do,[facility] January 09, 2018 06:30
[2018-01-09] MEDS: SODIUM CHLORIDE 0.9% FLUSH 10 ML FLUSH IV FLUSH SCH ×2 (09:00→21:52)
[2018-01-09] MEDS: GABAPENTIN 300 MG CAP PO SCH ×3 (10:14→18:00)
[2018-01-09] MEDS: LACTULOSE SYRUP 20 GM/30 ML CUP PO SCH (10:14)
[2018-01-09] MEDS: DOCUSATE SODIUM 50 MG/SENNA 8.6 MG TAB PO SCH ×2 (10:14→21:51)
[2018-01-09] MEDS: CHOLECALCIFEROL (VIT D3) 1000 UNIT TAB PO SCH (10:14)
[2018-01-09] MEDS: FAMOTIDINE 20 MG TAB NG SCH ×2 (10:15→21:51)
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
[2018-01-09] MEDS ORDERED: MAGNESIUM CITRATE SOLN 300 ML BTL PO ONE (11:30)
[2018-01-09] MEDS ORDERED: fentaNYL 50 MCG/HR PATCH T-DERMAL SCH (12:00)
[2018-01-09] MEDS ORDERED: LEVOFLOXACIN 500 MG PREMIX INJ 100 ML IV SCH (13:00)
[2018-01-09] MEDS: VANCOMYCIN INJ 1,000 MG in SODIUM CHLOR 0.9% 250 ML INJ 250 ML IV SCH (15:17)
[2018-01-09] MEDS: MORPHINE SULFATE 4 MG/ML INJ IV PUSH PRN (21:51)
[2018-01-10] MEDS: GENTAMICIN INJ 80 MG in SODIUM CHLORIDE 0.9% INJ 100 ML IV SCH ×4 (00:11→17:29)
[2018-01-10] MEDS: VANCOMYCIN INJ 1,000 MG in SODIUM CHLOR 0.9% 250 ML INJ 250 ML IV SCH (00:12)
[2018-01-10 00:30] VITALS: BP 138/83; PULSE 93; RESP 17; TEMP 98.1; O2SAT 92
[2018-01-10] MEDS: ENOXAPARIN SODIUM 30 MG/0.3 ML SYRINGE SQ SCH ×2 (02:43→13:40)
[2018-01-10 04:25] VITALS: BP 126/57; PULSE 99; RESP 16; TEMP 98.3; O2SAT 94
[2018-01-10] MEDS: REMOVE OLD PATCH-FENTANYL T-DERMAL SCH (06:00)
[2018-01-10] MEDS: fentaNYL 50 MCG/HR PATCH T-DERMAL SCH (06:45)
--- NOTE | 2018-01-10 06:50 | PD.ORT.PN ---
Subjective Subjective Remarks Patient is awake and alert and pain is controlled Objective Vitals Vital Signs Date Time Temp Pulse Resp B/P (MAP) Pulse Ox O2 Delivery O2 Flow Rate FiO2 01/10/18 04:25 98.3 99 16 126/57 (80) 94 01/10/18 00:30 98.1 93 17 138/83 (101) 92 01/09/18 22:03 93 01/09/18 20:00 98.8 102 17 143/66 (91) 92 01/09/18 19:31 Room Air 01/09/18 16:00 98.0 99 18 135/67 (89) 94 01/09/18 12:11 98.1 101 18 126/59 (81) 93 01/09/18 10:01 90 21 01/09/18 08:00 98.0 99 18 112/66 (81) 91 I/O 01/09/18 01/09/18 01/09/18 01/10/18 01/10/18 01/10/18 07:00 15:00 23:00 07:00 15:00 23:00 Intake Total 1000 ml 960 ml 1272 ml Output Total 2300 ml 400 ml Balance -1300 ml 560 ml 1272 ml Intake Oral 1000 ml 960 ml 720 ml IV Total 552 ml Output Urine Total 2300 ml 400 ml # Voids 6 # Bowel Movements 0 0 Result Diagram: 01/09/18 0328 01/09/18 0328 Imaging Last 24 hours Impressions Chest X-Ray 01/06/18 0600 Signed Impressions: Service Date/Time: Saturday, January 06, 2018 04:58 - CONCLUSION: Support apparatus in good position. Bilateral mostly basilar airspace disease has developed since January 03. Joel Meyers MD Objective Remarks Left upper extremity: Long-arm splint in place which is clean and dry. No pain with shoulder motion. Distally intact sensation of her radial ulnar and median nerve distributions. Full extension and flexion of all fingers. Good capillary refills and distal pulses LLE: +AKA. +vac. good seal Assessment & Plan Assessment and Plan 1) Left Olecranon Fx s/p ORIF - POD 2 -maintain splint -Active motion of all fingers -NWB -ortho surgeries complete Trapeze for bed to help patient maneuver Orthopedically cleared for discharge to rehab once medically cleared and trauma service has completed surgeries on left above-knee amputation Follow-up with Dr. Romano or [place] in 2 weeks 2) Left AKA -managed by David Gibson Jr. January 10, 2018 06:50
[2018-01-10] MEDS ORDERED: HYDR-3583 PO (06:53)
[2018-01-10 08:00] VITALS: BP 140/63; PULSE 95; RESP 16; TEMP 98.7; O2SAT 92
[2018-01-10] MEDS: SODIUM CHLORIDE 0.9% FLUSH 10 ML FLUSH IV FLUSH SCH ×2 (09:00→20:45)
[2018-01-10] MEDS: LACTULOSE SYRUP 20 GM/30 ML CUP PO SCH (09:14)
[2018-01-10] MEDS: DOCUSATE SODIUM 50 MG/SENNA 8.6 MG TAB PO SCH ×2 (09:14→20:43)
[2018-01-10] MEDS: CHOLECALCIFEROL (VIT D3) 1000 UNIT TAB PO SCH (09:14)
[2018-01-10] MEDS: GABAPENTIN 300 MG CAP PO SCH ×3 (09:14→17:17)
[2018-01-10] MEDS: FAMOTIDINE 20 MG TAB NG SCH ×2 (09:15→20:43)
[2018-01-10] MEDS ORDERED: BISACODYL 10 MG SUPP RECTAL ONE (11:15)
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
[2018-01-10] MEDS ORDERED: Vancomycin Consult Pharmacy 1 EA OTHER SCH (11:30)
[2018-01-10] MEDS: MORPHINE SULFATE 4 MG/ML INJ IV PUSH PRN (11:52)
[2018-01-10 12:00] VITALS: BP 139/65; PULSE 93; RESP 16; TEMP 98; O2SAT 93
[2018-01-10] MEDS ORDERED: ONDANSETRON HCL 4 MG/2 ML VIAL IV PUSH ONE (12:00)
[2018-01-10] MEDS ORDERED: SUCCINYLCHOLINE CHLORIDE 100 MG/5 ML SYRINGE IV PUSH ONE (12:00)
[2018-01-10] MEDS ORDERED: LACTATED RINGER'S 1000 ML INJ 1,000 ML IV ONE (12:00)
[2018-01-10] MEDS ORDERED: LIDOCAINE HCL 1% PF 5 ML SYRINGE OTHER ONE (12:00)
[2018-01-10] MEDS ORDERED: PROPOFOL 200 MG/20 ML AMP IV ONE (12:00)
[2018-01-10] MEDS ORDERED: DEXAMETHASONE SOD PHOS 4 MG/ML VIAL IV ONE (12:00)
[2018-01-10] MEDS: oxyCODONE/ACETAMINOPHEN 10 MG/325 MG TAB PO PRN ×5 (12:30→23:40)
[2018-01-10] MEDS: VANCOMYCIN INJ 1,750 MG in SODIUM CHLORID 0.9% 500 ML INJ 500 ML IV SCH ×2 (13:04→23:37)
[2018-01-10] MEDS: LEVOFLOXACIN 500 MG TAB PO SCH (13:20)
[2018-01-10] MEDS ORDERED: FAMOTIDINE 20 MG/2 ML VIAL ONE (13:32)
[2018-01-10] MEDS ORDERED: ACETAMINOPHEN 1000 MG/100 ML 100 ML IV ONE (13:32)
[2018-01-10] MEDS ORDERED: METOCLOPRAMIDE HCL 10 MG/2 ML VIAL ONE (13:58)
[2018-01-10] MEDS ORDERED: MIDAZOLAM HCL 2 MG/2 ML VIAL ONE (13:58)
[2018-01-10] MEDS ORDERED: *MEPERIDINE 25 MG INJ VIAL PERIprocedural Use ONLY ONE (16:30)
[2018-01-10] MEDS ORDERED: DO NOT ADM ANY ANTICOAGULANT DRUGS PRN (17:00)
[2018-01-10 19:45] VITALS: BP 131/59; PULSE 93; RESP 16; TEMP 98.2; O2SAT 93
--- NOTE | 2018-01-10 21:08 | MP ---
cc: Hansel Mcdaniels MD, Slobodan MD DATE OF OPERATION: 01/10/2018 PREOPERATIVE DIAGNOSIS: Status post traumatic left AKA guillotine amputation with partial closure and wound VAC. POSTOPERATIVE DIAGNOSIS: Status post traumatic left AKA guillotine amputation with partial closure and wound VAC. PROCEDURE PERFORMED: Debridement of the left AKA stump, irrigation and new wound VAC placement. SURGEON: Dr. Hansel Mcdaniels. ANESTHESIA: General. ESTIMATED BLOOD LOSS: 50 mL INDICATIONS FOR PROCEDURE: This pleasant lady underwent previously traumatic amputation of the left leg. At that time, she underwent guillotine amputation plus irrigation with wound VAC. This was partially revised the other day and now patient is going to be coming for various wound VAC changes and debridements as the wound conditions permit. The patient was prepped and draped in usual fashion and, after old wound VAC is removed, the stitches that had been placed in the stump are now partially removed. Some fluid is drained. It does not appear to be smelling foul in any way. The area is irrigated now with copious amounts of saline using pulse psychiatry adult physician. The tissue underneath appears to be viable with good bleeding. The surface is starting to granulate. The skin is now approximated to the muscle again and then wound VAC is applied leaving most of the incision open. The patient will be taken again to the operating room, probably in 4 or 5 days, for another irrigation and replacement of the wound VAC. Theoretically, this could be done at the bedside; however, would be too painful. MD CATRACHITA Vega/ , 07:18 PM , 09:07 PM
[2018-01-11 00:10] VITALS: BP 130/62; PULSE 92; RESP 16; TEMP 97.6; O2SAT 93
[2018-01-11] MEDS: GENTAMICIN INJ 80 MG in SODIUM CHLORIDE 0.9% INJ 100 ML IV SCH ×2 (01:57→09:21)
[2018-01-11] MEDS: ENOXAPARIN SODIUM 30 MG/0.3 ML SYRINGE SQ SCH ×2 (02:00→14:49)
[2018-01-11] MEDS: oxyCODONE/ACETAMINOPHEN 10 MG/325 MG TAB PO PRN ×7 (02:47→21:56)
[2018-01-11 04:25] VITALS: BP 136/63; PULSE 84; RESP 16; TEMP 97.7; O2SAT 93
[2018-01-11 06:30] LABS: AUTOMATED NEUTROPHIL # 4.2 TH/MM3 (1.8-7.7); BASOPHIL % 0.4 % (0.0-2.0); EOSINOPHIL % 0.4 % (0.0-4.0); HEMATOCRIT 26.1 % (35.0-46.0); HEMOGLOBIN 8.8 GM/DL (11.6-15.3); LYMPH % 16.4 % (9.0-44.0); LYMPHOCYTE # 0.9 TH/MM3 (1.0-4.8); MEAN CELL VOLUME 90.1 FL (80.0-100.0); MEAN CORPUSCULAR HEMOGLOBIN 30.6 PG (27.0-34.0); MEAN CORPUSCULAR HGB CONC 33.9 % (32.0-36.0); MEAN PLATELET VOLUME 8.5 FL (7.0-11.0); MONO % 7.7 % (0.0-8.0); MONOCYTE # 0.4 TH/MM3 (0-0.9); NEUT % 75.1 % (16.0-70.0); PLATELET COUNT 293 TH/MM3 (150-450); RED BLOOD COUNT 2.89 MIL/MM3 (4.00-5.30); RED CELL DISTRIBUTION WIDTH 15.6 % (11.6-17.2); WHITE BLOOD COUNT 5.5 TH/MM3 (4.0-11.0)
[2018-01-11 06:51] LABS: BICARBONATE 31.4 MEQ/L (21.0-32.0); CALCIUM 7.7 MG/DL (8.5-10.1); CREATININE 0.66 MG/DL (0.50-1.00)
[2018-01-11 08:00] VITALS: BP 121/60; PULSE 88; RESP 18; TEMP 97.3; O2SAT 94
[2018-01-11] MEDS: LEVOFLOXACIN 500 MG TAB PO SCH (09:19)
[2018-01-11] MEDS: POTASSIUM CHLORIDE 10 MEQ CONTROLLED RELEASE TAB PO SCH ×3 (09:19→15:46)
[2018-01-11] MEDS: DOCUSATE SODIUM 50 MG/SENNA 8.6 MG TAB PO SCH ×2 (09:19→21:04)
[2018-01-11] MEDS: FAMOTIDINE 20 MG TAB NG SCH ×2 (09:20→21:04)
[2018-01-11] MEDS: CHOLECALCIFEROL (VIT D3) 1000 UNIT TAB PO SCH (09:20)
[2018-01-11] MEDS: GABAPENTIN 300 MG CAP PO SCH ×3 (09:20→18:34)
[2018-01-11] MEDS: LACTULOSE SYRUP 20 GM/30 ML CUP PO SCH (09:20)
[2018-01-11] MEDS: METHOCARBAMOL 500 MG TAB PO SCH ×3 (09:20→23:36)
[2018-01-11] MEDS: SODIUM CHLORIDE 0.9% FLUSH 10 ML FLUSH IV FLUSH SCH ×2 (09:21→21:06)
[2018-01-11] MEDS ORDERED: PHARMACY ORDERED LAB ONE (11:45)
[2018-01-11] MEDS: VANCOMYCIN INJ 1,750 MG in SODIUM CHLORID 0.9% 500 ML INJ 500 ML IV SCH ×2 (12:23→23:37)
[2018-01-11 12:25] VITALS: BP 131/57; PULSE 86; RESP 18; TEMP 98.3; O2SAT 96
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
[2018-01-11 16:18] VITALS: BP 116/56; PULSE 87; RESP 18; TEMP 97.9; O2SAT 95
[2018-01-11 20:00] VITALS: BP 135/60; PULSE 92; RESP 20; TEMP 97.9; O2SAT 94
[2018-01-11] MEDS ORDERED: PERI PO (20:00)
[2018-01-12] VITALS: BP 110/56; PULSE 89; RESP 22; TEMP 98.1; O2SAT 94
[2018-01-12] MEDS: oxyCODONE/ACETAMINOPHEN 10 MG/325 MG TAB PO PRN ×7 (01:47→22:16)
[2018-01-12] MEDS: ENOXAPARIN SODIUM 30 MG/0.3 ML SYRINGE SQ SCH ×2 (02:00→14:40)
[2018-01-12 03:48] VITALS: BP 160/66; PULSE 83; RESP 21; TEMP 98.7; O2SAT 94
[2018-01-12 07:17] LABS: BICARBONATE 28.9 MEQ/L (21.0-32.0); CREATININE 0.64 MG/DL (0.50-1.00); HEMATOCRIT 25.9 % (35.0-46.0); HEMOGLOBIN 8.8 GM/DL (11.6-15.3)
[2018-01-12 07:18] LABS: MAGNESIUM 2.4 MG/DL (1.5-2.5); PHOSPHORUS 3.1 MG/DL (2.5-4.9)
[2018-01-12 08:00] VITALS: BP 140/72; PULSE 84; RESP 18; TEMP 98.5; O2SAT 93
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
[2018-01-12] MEDS: GABAPENTIN 300 MG CAP PO SCH ×3 (09:23→18:23)
[2018-01-12] MEDS: FAMOTIDINE 20 MG TAB NG SCH ×2 (09:23→20:51)
[2018-01-12] MEDS: LEVOFLOXACIN 500 MG TAB PO SCH (09:23)
[2018-01-12] MEDS: CHOLECALCIFEROL (VIT D3) 1000 UNIT TAB PO SCH (09:23)
[2018-01-12] MEDS: METHOCARBAMOL 500 MG TAB PO SCH ×2 (09:23→18:23)
[2018-01-12] MEDS: SODIUM CHLORIDE 0.9% FLUSH 10 ML FLUSH IV FLUSH SCH ×2 (09:23→20:52)
[2018-01-12] MEDS: LACTULOSE SYRUP 20 GM/30 ML CUP PO SCH (09:23)
[2018-01-12] MEDS: DOCUSATE SODIUM 50 MG/SENNA 8.6 MG TAB PO SCH ×2 (09:30→20:51)
[2018-01-12] MEDS ORDERED: PHARMACY ORDERED LAB ONE (11:45)
[2018-01-12 12:00] VITALS: BP 149/69; PULSE 69; RESP 18; TEMP 98.4; O2SAT 95
[2018-01-12] MEDS ORDERED: REMOVE OLD DURAGESIC (FENTANYL) PATCH T-DERMAL SCH (12:00)
[2018-01-12] MEDS: VANCOMYCIN INJ 1,750 MG in SODIUM CHLORID 0.9% 500 ML INJ 500 ML IV SCH (14:39)
[2018-01-12 16:00] VITALS: BP 129/65; PULSE 82; RESP 18; TEMP 98.8; O2SAT 95
[2018-01-12 20:00] VITALS: BP 142/64; PULSE 74; RESP 22; TEMP 98.1; O2SAT 95
[2018-01-13] VITALS: BP 136/65; PULSE 72; RESP 21; TEMP 97.6; O2SAT 95
[2018-01-13] MEDS: METHOCARBAMOL 500 MG TAB PO SCH ×4 (00:28→23:12)
[2018-01-13] MEDS: VANCOMYCIN INJ 1,750 MG in SODIUM CHLORID 0.9% 500 ML INJ 500 ML IV SCH ×3 (00:30→23:12)
[2018-01-13] MEDS: ENOXAPARIN SODIUM 30 MG/0.3 ML SYRINGE SQ SCH ×3 (02:02→23:19)
[2018-01-13] MEDS: oxyCODONE/ACETAMINOPHEN 10 MG/325 MG TAB PO PRN ×7 (02:08→23:12)
[2018-01-13 04:00] VITALS: BP 134/63; PULSE 77; RESP 20; TEMP 97.2; O2SAT 94
[2018-01-13] MEDS: REMOVE OLD PATCH-FENTANYL T-DERMAL SCH (06:00)
[2018-01-13] MEDS: fentaNYL 50 MCG/HR PATCH T-DERMAL SCH (06:43)
[2018-01-13 07:59] VITALS: BP 149/67; PULSE 79; RESP 18; TEMP 98.3; O2SAT 94
[2018-01-13] MEDS: DOCUSATE SODIUM 50 MG/SENNA 8.6 MG TAB PO SCH ×2 (08:05→20:08)
[2018-01-13] MEDS: SODIUM CHLORIDE 0.9% FLUSH 10 ML FLUSH IV FLUSH SCH ×2 (08:05→20:08)
[2018-01-13] MEDS: LACTULOSE SYRUP 20 GM/30 ML CUP PO SCH (08:06)
[2018-01-13] MEDS: CHOLECALCIFEROL (VIT D3) 1000 UNIT TAB PO SCH (08:06)
[2018-01-13] MEDS: FAMOTIDINE 20 MG TAB NG SCH ×2 (08:06→20:08)
[2018-01-13] MEDS: LEVOFLOXACIN 500 MG TAB PO SCH (08:06)
[2018-01-13] MEDS: GABAPENTIN 300 MG CAP PO SCH ×3 (08:06→17:03)
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
[2018-01-13 12:00] VITALS: BP 147/69; PULSE 78; RESP 18; TEMP 98.2; O2SAT 96
[2018-01-13 16:00] VITALS: BP 111/53; PULSE 76; RESP 18; TEMP 98.4; O2SAT 94
[2018-01-13] MEDS ORDERED: SODIUM CHLORID 0.9% 500 ML IV PRN (18:45)
[2018-01-13] MEDS ORDERED: POVIDONE IODINE 5% (ANTISEPSIS KIT) 4 APPLICATIONS EACH NARE PRN (18:45)
[2018-01-13] MEDS ORDERED: CHLORHEXIDINE GLUCONATE 2 % 1 PACK (2 CLOTHS) TOPICAL PRN (18:45)
[2018-01-13] MEDS ORDERED: METOPROLOL TARTRATE 25 MG TAB PO PRN (18:45)
[2018-01-13 20:00] VITALS: BP 149/59; PULSE 79; RESP 18; TEMP 98.2; O2SAT 95
[2018-01-13] MEDS: LACTATED RINGER'S 1000 ML IV PRN (23:12)
[2018-01-14] VITALS: BP 126/60; PULSE 83; RESP 16; TEMP 98.6; O2SAT 96
[2018-01-14] MEDS: oxyCODONE/ACETAMINOPHEN 10 MG/325 MG TAB PO PRN ×5 (02:36→23:37)
[2018-01-14 04:00] VITALS: BP 129/56; PULSE 74; RESP 16; TEMP 98.4; O2SAT 96
--- NOTE | 2018-01-14 06:59 | PD.ORT.PN ---
Subjective Subjective Remarks Patient is awake and alert and pain is controlled Objective Vitals Vital Signs Date Time Temp Pulse Resp B/P (MAP) Pulse Ox O2 Delivery O2 Flow Rate FiO2 01/14/18 04:00 98.4 74 16 129/56 (80) 96 01/14/18 00:00 98.6 83 16 126/60 (82) 96 01/13/18 20:00 98.2 79 18 149/59 (89) 95 01/13/18 19:12 Room Air 01/13/18 18:04 18 01/13/18 16:00 98.4 76 18 111/53 (72) 94 01/13/18 12:00 98.2 78 18 147/69 (95) 96 01/13/18 08:03 18 01/13/18 07:59 98.3 79 18 149/67 (94) 94 I/O 01/13/18 01/13/18 01/13/18 01/14/18 01/14/18 01/14/18 07:00 15:00 23:00 07:00 15:00 23:00 Intake Total 1450 ml 767.5 ml 720 ml 757 ml Output Total 50 ml Balance 1400 ml 767.5 ml 720 ml 757 ml Intake Oral 1200 ml 720 ml 240 ml IV Total 250 ml 767.5 ml 517 ml Drainage Total 50 ml # Voids 6 8 3 Result Diagram: 01/12/18 0509 01/12/18 0509 Imaging Last 24 hours Impressions Chest X-Ray 01/06/18 0600 Signed Impressions: Service Date/Time: Saturday, January 06, 2018 04:58 - CONCLUSION: Support apparatus in good position. Bilateral mostly basilar airspace disease has developed since January 03. Joel Meyers MD Objective Remarks Left upper extremity: Long-arm splint in place which is clean and dry. No pain with shoulder motion. Distally intact sensation of her radial ulnar and median nerve distributions. Full extension and flexion of all fingers. Good capillary refills and distal pulses LLE: +AKA. +vac. good seal Assessment & Plan Assessment and Plan 1) Left Olecranon Fx s/p ORIF - POD 6 -maintain splint -Active motion of all fingers -NWB -ortho surgeries complete Trapeze for bed to help patient maneuver Orthopedically cleared for discharge to rehab once medically cleared and trauma service has completed surgeries on left above-knee amputation Follow-up with Dr. Romano or [place] in 2 weeks 2) Left AKA -managed by Dr Pelon Blake,David PARK January 14, 2018 06:59
[2018-01-14 08:00] VITALS: BP 125/60; PULSE 62; RESP 18; TEMP 98.8; O2SAT 96
[2018-01-14] MEDS: METHOCARBAMOL 500 MG TAB PO SCH ×3 (08:38→23:37)
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
[2018-01-14] MEDS: GABAPENTIN 300 MG CAP PO SCH ×3 (08:48→18:00)
[2018-01-14] MEDS: SODIUM CHLORIDE 0.9% FLUSH 10 ML FLUSH IV FLUSH SCH ×2 (08:48→20:28)
[2018-01-14] MEDS: LEVOFLOXACIN 500 MG TAB PO SCH (08:48)
[2018-01-14] MEDS: LACTULOSE SYRUP 20 GM/30 ML CUP PO SCH (08:48)
[2018-01-14] MEDS: DOCUSATE SODIUM 50 MG/SENNA 8.6 MG TAB PO SCH ×2 (08:49→20:28)
[2018-01-14] MEDS: CHOLECALCIFEROL (VIT D3) 1000 UNIT TAB PO SCH (08:49)
[2018-01-14] MEDS: FAMOTIDINE 20 MG TAB NG SCH ×2 (08:50→20:28)
[2018-01-14 12:00] VITALS: BP 123/68; PULSE 93; RESP 18; TEMP 98.4; O2SAT 99
[2018-01-14] MEDS ORDERED: PHENYLEPH/NS 1000 MCG/10 ML SYR IV ONE (12:00)
[2018-01-14] MEDS ORDERED: ONDANSETRON HCL 4 MG/2 ML VIAL IV ONE (12:00)
[2018-01-14] MEDS ORDERED: PROPOFOL 200 MG/20 ML AMP IV ONE (12:00)
[2018-01-14] MEDS ORDERED: DEXAMETHASONE SOD PHOS 4 MG/ML VIAL IV ONE (12:00)
[2018-01-14] MEDS ORDERED: LIDOCAINE HCL 1% PF 5 ML SYRINGE OTHER ONE (12:00)
[2018-01-14] MEDS ORDERED: ePHEDrine/NS 25 MG/5 ML SYRINGE IV ONE (12:00)
[2018-01-14] MEDS: VANCOMYCIN INJ 1,750 MG in SODIUM CHLORID 0.9% 500 ML INJ 500 ML IV SCH ×2 (12:13→23:37)
[2018-01-14] MEDS: ENOXAPARIN SODIUM 30 MG/0.3 ML SYRINGE SQ SCH (14:00)
[2018-01-14] MEDS: LACTATED RINGER'S 1000 ML IV PRN (15:16)
[2018-01-14] MEDS ORDERED: ACETAMINOPHEN 1000 MG/100 ML 100 ML IV ONE (17:55)
[2018-01-14] MEDS ORDERED: MIDAZOLAM HCL 2 MG/2 ML VIAL ONE (19:12)
[2018-01-14] MEDS ORDERED: MORPHINE SULFATE 4 MG/ML INJ ONE (19:13)
[2018-01-14] MEDS ORDERED: DO NOT ADM ANY ANTICOAGULANT DRUGS PRN (19:25)
[2018-01-14] MEDS ORDERED: *morphine SULFATE 4 MG/ML PERIprocedure ONLY ONE (19:42)
[2018-01-14 20:00] VITALS: BP 125/53; PULSE 82; RESP 20; TEMP 98.1; O2SAT 93
--- NOTE | 2018-01-14 21:24 | MP ---
cc: Hansel Mcdaniels MD DATE OF OPERATION: 01/14/2018 DATE OF PROCEDURE: 01/14/2018. PREOPERATIVE DIAGNOSIS: Status post traumatic above-knee amputation. POSTOPERATIVE DIAGNOSIS: Status post traumatic above-knee amputation. OPERATIVE PROCEDURE: Irrigation and debridement of left AKA and partial closure of the wound. SURGEON: Pedro Mcdaniels MD TYPE OF ANESTHESIA: General. ESTIMATED BLOOD LOSS: 20 mL DESCRIPTION OF PROCEDURE: The patient was prepped and draped in usual fashion. The area exposed. The patient had wound VAC previously here, now wound VAC is removed. The tissue is nice and red and well vascularized. There is no drainage, no signs of infection, no debris, and there is small amount of devitalized skin at the edges, this is removed. Rest of the skin appears to be nice and clean. The wound is now irrigated with copious amounts of saline with pulse workforce management manager and meticulous hemostasis assured. Decision is now made to actually approximate the skin and subcutaneous tissue in some areas, mainly inferior portion of the stump. This is done with interrupted 2-0 Prolenes. A Karin drain is placed considering dependent portion of this. The rest is covered with some Xeroform dressing applied. The patient tolerated the procedure well. The patient will probably have to return to OR for 1 or 2 more washouts and then will be ready for skin grafting of the anterior portion of the AKA, where there is no skin to cover. MD CATRACHITA Vega/NICOLE , 07:46 PM , 09:23 PM
[2018-01-15] VITALS: BP 116/58; PULSE 75; RESP 20; TEMP 98; O2SAT 96
[2018-01-15 04:00] VITALS: BP 113/53; PULSE 80; RESP 18; TEMP 97.4; O2SAT 96
[2018-01-15 04:28] LABS: AUTOMATED NEUTROPHIL # 7.9 TH/MM3 (1.8-7.7); BASOPHIL % 0.4 % (0.0-2.0); HEMOGLOBIN 10.3 GM/DL (11.6-15.3); LYMPH % 6.8 % (9.0-44.0); LYMPHOCYTE # 0.6 TH/MM3 (1.0-4.8); MEAN CELL VOLUME 92.1 FL (80.0-100.0); MEAN CORPUSCULAR HEMOGLOBIN 30.5 PG (27.0-34.0); MEAN CORPUSCULAR HGB CONC 33.2 % (32.0-36.0); MEAN PLATELET VOLUME 8.7 FL (7.0-11.0); MONO % 2.8 % (0.0-8.0); MONOCYTE # 0.2 TH/MM3 (0-0.9); PLATELET COUNT 429 TH/MM3 (150-450); RED BLOOD COUNT 3.36 MIL/MM3 (4.00-5.30); RED CELL DISTRIBUTION WIDTH 16.7 % (11.6-17.2); WHITE BLOOD COUNT 8.7 TH/MM3 (4.0-11.0)
[2018-01-15] MEDS: oxyCODONE/ACETAMINOPHEN 10 MG/325 MG TAB PO PRN ×5 (04:38→22:26)
[2018-01-15 04:52] LABS: BICARBONATE 27.8 MEQ/L (21.0-32.0); CALCIUM 7.8 MG/DL (8.5-10.1); CREATININE 0.9 MG/DL (0.50-1.00)
[2018-01-15] MEDS: GABAPENTIN 300 MG CAP PO SCH ×3 (07:45→18:36)
[2018-01-15] MEDS: LACTULOSE SYRUP 20 GM/30 ML CUP PO SCH (07:46)
[2018-01-15] MEDS: CHOLECALCIFEROL (VIT D3) 1000 UNIT TAB PO SCH (07:46)
[2018-01-15] MEDS: DOCUSATE SODIUM 50 MG/SENNA 8.6 MG TAB PO SCH ×2 (07:46→21:17)
[2018-01-15] MEDS: ENOXAPARIN SODIUM 30 MG/0.3 ML SYRINGE SQ SCH ×2 (07:46→18:37)
[2018-01-15] MEDS: LEVOFLOXACIN 500 MG TAB PO SCH (07:46)
[2018-01-15] MEDS: FAMOTIDINE 20 MG TAB NG SCH ×2 (07:47→21:17)
[2018-01-15] MEDS: METHOCARBAMOL 500 MG TAB PO SCH ×3 (07:47→23:51)
[2018-01-15 08:05] VITALS: BP 119/56; PULSE 75; RESP 17; TEMP 98.2; O2SAT 98
[2018-01-15] MEDS ORDERED: PHARMACY ORDERED LAB ONE ×2 (11:45→23:45)
[2018-01-15 11:48] VITALS: BP 138/70; PULSE 93; RESP 18; TEMP 98.5; O2SAT 98
[2018-01-15] MEDS ORDERED: MAGNESIUM CITRATE SOLN 300 ML BTL PO ONE (12:00)
[2018-01-15] MEDS: VANCOMYCIN INJ 1,750 MG in SODIUM CHLORID 0.9% 500 ML INJ 500 ML IV SCH ×2 (12:24→23:50)
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
[2018-01-15 16:20] VITALS: BP 120/58; PULSE 81; RESP 18; TEMP 98.2; O2SAT 98
[2018-01-15 20:00] VITALS: BP 119/62; PULSE 83; RESP 20; TEMP 98; O2SAT 97
[2018-01-15] MEDS: SODIUM CHLORIDE 0.9% FLUSH 10 ML FLUSH IV FLUSH SCH (21:18)
[2018-01-16] VITALS (7 sets, daily range): BP systolic 112–142; BP diastolic 54–67; PULSE 72–87; RESP 17–20; TEMP 97.7–99; O2SAT 94–98
[2018-01-16] MEDS: oxyCODONE/ACETAMINOPHEN 10 MG/325 MG TAB PO PRN ×7 (02:18→20:12)
[2018-01-16] MEDS: fentaNYL 50 MCG/HR PATCH T-DERMAL SCH (05:58)
[2018-01-16] MEDS: REMOVE OLD PATCH-FENTANYL T-DERMAL SCH (05:58)
[2018-01-16] MEDS: LACTULOSE SYRUP 20 GM/30 ML CUP PO SCH (08:32)
[2018-01-16] MEDS: FAMOTIDINE 20 MG TAB NG SCH ×2 (08:33→20:11)
[2018-01-16] MEDS: GABAPENTIN 300 MG CAP PO SCH (08:33)
[2018-01-16] MEDS: DOCUSATE SODIUM 50 MG/SENNA 8.6 MG TAB PO SCH ×2 (08:33→21:00)
[2018-01-16] MEDS: LEVOFLOXACIN 500 MG TAB PO SCH (08:33)
[2018-01-16] MEDS: METHOCARBAMOL 500 MG TAB PO SCH ×3 (08:34→22:22)
[2018-01-16] MEDS: ENOXAPARIN SODIUM 30 MG/0.3 ML SYRINGE SQ SCH ×2 (08:34→20:11)
[2018-01-16] MEDS: CHOLECALCIFEROL (VIT D3) 1000 UNIT TAB PO SCH (08:34)
[2018-01-16] MEDS: SODIUM CHLORIDE 0.9% FLUSH 10 ML FLUSH IV FLUSH SCH ×2 (08:34→20:11)
[2018-01-16] MEDS ORDERED: fentaNYL 75 MCG/HR PATCH T-DERMAL SCH (10:30)
[2018-01-16] MEDS: IBUPROFEN 800 MG TAB PO SCH ×3 (11:13→22:22)
[2018-01-16] MEDS: fentaNYL 75 MCG/HR PATCH T-DERMAL SCH (14:16)
[2018-01-16] MEDS: PREGABALIN 25 MG CAP PO SCH ×2 (14:17→22:22)
[2018-01-16] MEDS: VANCOMYCIN INJ 1,500 MG in SODIUM CHLORID 0.9% 500 ML INJ 500 ML IV SCH (17:02)
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
[2018-01-17] VITALS (9 sets, daily range): BP systolic 103–167; BP diastolic 51–87; PULSE 71–89; RESP 12–18; TEMP 97.7–98.6; O2SAT 95–98
[2018-01-17] MEDS: oxyCODONE/ACETAMINOPHEN 10 MG/325 MG TAB PO PRN ×8 (00:38→23:56)
[2018-01-17] MEDS: PREGABALIN 25 MG CAP PO SCH ×3 (06:09→20:45)
[2018-01-17] MEDS: IBUPROFEN 800 MG TAB PO SCH ×4 (06:09→23:55)
[2018-01-17] MEDS: ENOXAPARIN SODIUM 30 MG/0.3 ML SYRINGE SQ SCH ×2 (06:10→20:45)
[2018-01-17] MEDS: VANCOMYCIN INJ 1,500 MG in SODIUM CHLORID 0.9% 500 ML INJ 500 ML IV SCH ×2 (06:10→17:43)
[2018-01-17 07:34] LABS: CREATININE 0.85 MG/DL (0.50-1.00)
[2018-01-17] MEDS: DOCUSATE SODIUM 50 MG/SENNA 8.6 MG TAB PO SCH ×2 (08:00→20:49)
[2018-01-17] MEDS: LACTULOSE SYRUP 20 GM/30 ML CUP PO SCH (08:00)
[2018-01-17] MEDS: METHOCARBAMOL 500 MG TAB PO SCH ×3 (10:01→23:55)
[2018-01-17 10:03] LABS: CALCIUM 7.8 MG/DL (8.5-10.1)
[2018-01-17] MEDS: LEVOFLOXACIN 500 MG TAB PO SCH (10:03)
[2018-01-17] MEDS: CHOLECALCIFEROL (VIT D3) 1000 UNIT TAB PO SCH (10:03)
[2018-01-17] MEDS: FAMOTIDINE 20 MG TAB NG SCH ×2 (10:03→20:45)
[2018-01-17] MEDS: SODIUM CHLORIDE 0.9% FLUSH 10 ML FLUSH IV FLUSH SCH ×2 (10:03→20:49)
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
[2018-01-17] MEDS: SILVER SULFADIAZINE 1% CR 50 GM JAR TOP SCH (15:14)
[2018-01-18] VITALS (9 sets, daily range): BP systolic 98–141; BP diastolic 52–94; PULSE 79–97; RESP 16–18; TEMP 97.8–98.9; O2SAT 95–98
[2018-01-18] MEDS: oxyCODONE/ACETAMINOPHEN 10 MG/325 MG TAB PO PRN ×6 (02:43→20:56)
[2018-01-18] MEDS ORDERED: PHARMACY ORDERED LAB ONE (05:45)
[2018-01-18] MEDS: IBUPROFEN 800 MG TAB PO SCH ×3 (06:21→18:10)
[2018-01-18] MEDS: PREGABALIN 25 MG CAP PO SCH ×3 (06:21→20:56)
[2018-01-18] MEDS: VANCOMYCIN INJ 1,500 MG in SODIUM CHLORID 0.9% 500 ML INJ 500 ML IV SCH (06:22)
[2018-01-18] MEDS: LACTULOSE SYRUP 20 GM/30 ML CUP PO SCH (08:28)
[2018-01-18] MEDS: CHOLECALCIFEROL (VIT D3) 1000 UNIT TAB PO SCH (08:29)
[2018-01-18] MEDS: DOCUSATE SODIUM 50 MG/SENNA 8.6 MG TAB PO SCH ×2 (08:29→20:51)
[2018-01-18] MEDS: METHOCARBAMOL 500 MG TAB PO SCH ×2 (08:29→15:02)
[2018-01-18] MEDS: LEVOFLOXACIN 500 MG TAB PO SCH (08:29)
[2018-01-18] MEDS: FAMOTIDINE 20 MG TAB NG SCH ×2 (08:29→20:51)
[2018-01-18] MEDS: SODIUM CHLORIDE 0.9% FLUSH 10 ML FLUSH IV FLUSH SCH ×2 (08:30→20:55)
[2018-01-18] MEDS: SILVER SULFADIAZINE 1% CR 50 GM JAR TOP SCH (08:30)
[2018-01-18] MEDS: ENOXAPARIN SODIUM 30 MG/0.3 ML SYRINGE SQ SCH ×2 (08:30→20:49)
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
[2018-01-18] MEDS: NYSTATIN SUSP 500,000 U/5 ML CUP SWISH-SWAL SCH ×3 (13:07→20:50)
[2018-01-18] MEDS ORDERED: COMMODE 3-IN-11 MIS (14:47)
[2018-01-19] MEDS: oxyCODONE/ACETAMINOPHEN 10 MG/325 MG TAB PO PRN ×7 (00:02→20:42)
[2018-01-19] MEDS: METHOCARBAMOL 500 MG TAB PO SCH ×4 (00:02→23:50)
[2018-01-19] MEDS: IBUPROFEN 800 MG TAB PO SCH ×2 (00:02→05:45)
[2018-01-19 00:20] VITALS: BP 128/60; PULSE 85; RESP 16; TEMP 97.5; O2SAT 97
[2018-01-19] MEDS: PREGABALIN 25 MG CAP PO SCH ×3 (05:44→23:50)
[2018-01-19] MEDS ORDERED: PHARMACY ORDERED LAB ONE (05:45)
[2018-01-19 06:17] LABS: CREATININE 0.69 MG/DL (0.50-1.00)
[2018-01-19] MEDS: NYSTATIN SUSP 500,000 U/5 ML CUP SWISH-SWAL SCH ×4 (07:52→20:42)
[2018-01-19] MEDS: FAMOTIDINE 20 MG TAB NG SCH ×2 (07:52→20:42)
[2018-01-19] MEDS: DOCUSATE SODIUM 50 MG/SENNA 8.6 MG TAB PO SCH ×2 (07:52→20:42)
[2018-01-19] MEDS: CHOLECALCIFEROL (VIT D3) 1000 UNIT TAB PO SCH (07:52)
[2018-01-19] MEDS: fentaNYL 75 MCG/HR PATCH T-DERMAL SCH (07:55)
[2018-01-19] MEDS: REMOVE OLD DURAGESIC (FENTANYL) PATCH T-DERMAL SCH (07:55)
[2018-01-19] MEDS: SODIUM CHLORIDE 0.9% FLUSH 10 ML FLUSH IV FLUSH SCH ×2 (07:55→20:42)
[2018-01-19] MEDS: SILVER SULFADIAZINE 1% CR 50 GM JAR TOP SCH (07:55)
[2018-01-19] MEDS: ENOXAPARIN SODIUM 30 MG/0.3 ML SYRINGE SQ SCH ×2 (07:56→20:43)
[2018-01-19] MEDS: LACTULOSE SYRUP 20 GM/30 ML CUP PO SCH (07:56)
[2018-01-19 08:00] VITALS: BP 117/70; PULSE 75; RESP 18; TEMP 98.2; O2SAT 99
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
[2018-01-19 12:00] VITALS: BP 137/62; PULSE 94; RESP 18; TEMP 98; O2SAT 96
[2018-01-19 16:00] VITALS: BP 134/60; PULSE 93; RESP 18; TEMP 98; O2SAT 97
[2018-01-19 20:50] VITALS: BP 109/55; PULSE 92; RESP 18; TEMP 100.2; O2SAT 96
[2018-01-20 00:05] VITALS: BP 118/56; PULSE 86; RESP 17; TEMP 98.7; O2SAT 96
[2018-01-20] MEDS: oxyCODONE/ACETAMINOPHEN 10 MG/325 MG TAB PO PRN ×9 (00:08→23:49)
[2018-01-20] MEDS: PREGABALIN 25 MG CAP PO SCH ×3 (06:09→21:38)
[2018-01-20] MEDS: CHOLECALCIFEROL (VIT D3) 1000 UNIT TAB PO SCH (07:33)
[2018-01-20] MEDS: FAMOTIDINE 20 MG TAB NG SCH ×2 (07:33→20:58)
[2018-01-20] MEDS: METHOCARBAMOL 500 MG TAB PO SCH ×3 (07:33→23:49)
[2018-01-20] MEDS: NYSTATIN SUSP 500,000 U/5 ML CUP SWISH-SWAL SCH ×4 (07:33→20:59)
[2018-01-20] MEDS: SODIUM CHLORIDE 0.9% FLUSH 10 ML FLUSH IV FLUSH SCH ×2 (07:34→20:59)
[2018-01-20] MEDS: DOCUSATE SODIUM 50 MG/SENNA 8.6 MG TAB PO SCH ×2 (07:34→20:58)
[2018-01-20] MEDS: LACTULOSE SYRUP 20 GM/30 ML CUP PO SCH (07:34)
[2018-01-20] MEDS: ENOXAPARIN SODIUM 30 MG/0.3 ML SYRINGE SQ SCH ×2 (07:34→20:59)
[2018-01-20] MEDS: SILVER SULFADIAZINE 1% CR 50 GM JAR TOP SCH (07:36)
[2018-01-20 08:00] VITALS: BP 117/66; PULSE 81; RESP 16; TEMP 98.3; O2SAT 95
[2018-01-20] MEDS ORDERED: diphenhydrAMINE HCL 50 MG CAP PO PRN (09:30)
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
[2018-01-20] MEDS: HYDROCORTISONE 1% CREAM 30 GM TOPICAL SCH ×2 (10:50→18:00)
[2018-01-20 12:00] VITALS: BP 102/68; PULSE 96; RESP 16; TEMP 98.5; O2SAT 97
[2018-01-20 16:00] VITALS: BP 118/59; PULSE 84; RESP 16; TEMP 98.1; O2SAT 96
[2018-01-20 19:20] VITALS: BP_SYST 131; BP_SYST 143; BP_DIAS 71; BP_DIAS 75; PULSE 89; PULSE 95; RESP 18; TEMP 98.1; TEMP 98.3; O2SAT 93; O2SAT 95
[2018-01-21] VITALS (8 sets, daily range): BP systolic 102–137; BP diastolic 59–90; PULSE 77–96; RESP 16–18; TEMP 97.6–98.1; O2SAT 95–99
[2018-01-21] MEDS: HYDROCORTISONE 1% CREAM 30 GM TOPICAL SCH ×4 (02:52→21:42)
[2018-01-21] MEDS: oxyCODONE/ACETAMINOPHEN 10 MG/325 MG TAB PO PRN ×7 (03:05→21:41)
[2018-01-21] MEDS: PREGABALIN 25 MG CAP PO SCH ×3 (05:56→23:53)
[2018-01-21 06:41] LABS: CREATININE 0.68 MG/DL (0.50-1.00)
--- NOTE | 2018-01-21 07:18 | PD.ORT.PN ---
Subjective Subjective Remarks POD 13 s/p ORIF left olecranon fx doing well. reports soreness but overall resting comfortably Objective Vitals Vital Signs Date Time Temp Pulse Resp B/P (MAP) Pulse Ox O2 Delivery O2 Flow Rate FiO2 01/21/18 04:00 98.0 79 16 102/64 (77) 98 01/21/18 00:00 98.0 94 18 128/67 (87) 95 01/20/18 21:39 18 01/20/18 19:20 98.1 95 18 131/75 (93) 95 01/20/18 16:00 98.1 84 16 118/59 (78) 96 01/20/18 13:21 18 01/20/18 12:00 98.5 96 16 102/68 (79) 97 01/20/18 08:00 98.3 81 16 117/66 (83) 95 I/O 01/20/18 01/20/18 01/20/18 01/21/18 01/21/18 01/21/18 07:00 15:00 23:00 07:00 15:00 23:00 Intake Total 960 ml 720 ml 480 ml Balance 960 ml 720 ml 480 ml Intake Oral 960 ml 720 ml 480 ml # Voids 8 3 2 # Bowel Movements 1 1 0 Result Diagram: 01/21/18 0539 Imaging Last 24 hours Impressions Chest X-Ray 01/06/18 0600 Signed Impressions: Service Date/Time: Saturday, January 06, 2018 04:58 - CONCLUSION: Support apparatus in good position. Bilateral mostly basilar airspace disease has developed since January 03. Joel Meyers MD Objective Remarks Left upper extremity: Long-arm splint in place which is clean and dry. No pain with shoulder motion. Distally intact sensation of her radial ulnar and median nerve distributions. Full extension and flexion of all fingers. Good capillary refills and distal pulses. splint removed. incision visualized. clean and dry and healing well. Assessment & Plan Assessment and Plan 1) Left Olecranon Fx s/p ORIF - POD 13 -DC splint -PROM of elbow -sling -Active motion of all fingers -NWB -ortho surgeries complete -XR today of left elbow -plan to keep ivan/sutures in place for another 5-7 days due to traumatic wound originally had Trapeze for bed to help patient maneuver Orthopedically cleared for discharge to rehab once medically cleared and trauma service has completed surgeries on left above-knee amputation 2) Left AKA -managed by Dr Pelon Do,[facility] January 21, 2018 07:18
[2018-01-21] MEDS: FAMOTIDINE 20 MG TAB NG SCH ×2 (07:59→21:41)
[2018-01-21] MEDS: ENOXAPARIN SODIUM 30 MG/0.3 ML SYRINGE SQ SCH ×2 (07:59→21:41)
[2018-01-21] MEDS: METHOCARBAMOL 500 MG TAB PO SCH ×3 (07:59→23:53)
[2018-01-21] MEDS: DOCUSATE SODIUM 50 MG/SENNA 8.6 MG TAB PO SCH ×2 (08:00→21:41)
[2018-01-21] MEDS: NYSTATIN SUSP 500,000 U/5 ML CUP SWISH-SWAL SCH ×4 (08:00→21:42)
[2018-01-21] MEDS: LACTULOSE SYRUP 20 GM/30 ML CUP PO SCH (08:00)
[2018-01-21] MEDS: CHOLECALCIFEROL (VIT D3) 1000 UNIT TAB PO SCH (08:00)
[2018-01-21] MEDS: SILVER SULFADIAZINE 1% CR 50 GM JAR TOP SCH (08:00)
[2018-01-21] MEDS: SODIUM CHLORIDE 0.9% FLUSH 10 ML FLUSH IV FLUSH SCH ×2 (08:01→21:00)
--- NOTE | 2018-01-21 09:20 | RADRPT ---
EXAM DATE: 01/21/2018 9:15 AM EDT AGE/SEX: 47 years / Female INDICATIONS: Evaluate fracture. CLINICAL DATA: This is the patient's subsequent encounter. Patient reports that signs and symptoms h ave been present for 1 week and indicates a pain score of 5/10. MEDICAL/SURGICAL HISTORY: None. None. [place]PAR[place] [facility] [place] (AP & LAT[place] 01/08/2018. . FINDINGS: AP and lateral views of the left elbow demonstrate posterior cast/splint material in place. There are skin ivan posteriorly. A posterior sideplate with multiple interlocking screws are present at the proximal ulna traversing the proximal ulna fracture. Fracture lines subtly remain visualized. There are no findings to indicate hardware failure or loosening. No joint effusion is appreciated. The whitney carine and radius appear intact. No concerning radiopaque foreign body is seen. CONCLUSION: Stable examination of the left elbow following proximal ulna ORIF. Alignment remains within normal li mits and there are no findings to indicate hardware failure. Electronically signed by: Baljit Shukla MD 01/21/2018 9:19 AM EDT
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
[2018-01-21] MEDS: IBUPROFEN 600 MG TAB PO PRN ×2 (13:30→23:57)
[2018-01-21] MEDS ORDERED: METH500T3 PO (17:06)
[2018-01-21] MEDS ORDERED: Silver Sulfadia 1% Crm (50 Gm) TOP (17:06)
[2018-01-21] MEDS ORDERED: WHEEMIS3 (17:06)
[2018-01-22] VITALS: BP 109/65; PULSE 84; RESP 18; TEMP 97.4; O2SAT 100
[2018-01-22] MEDS: oxyCODONE/ACETAMINOPHEN 10 MG/325 MG TAB PO PRN ×7 (02:22→22:14)
[2018-01-22] MEDS: PREGABALIN 25 MG CAP PO SCH ×3 (05:54→22:14)
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
[2018-01-22 08:00] VITALS: BP 108/56; PULSE 90; RESP 16; TEMP 97.8; O2SAT 94
[2018-01-22] MEDS: CHOLECALCIFEROL (VIT D3) 1000 UNIT TAB PO SCH (08:14)
[2018-01-22] MEDS: METHOCARBAMOL 500 MG TAB PO SCH ×2 (08:14→18:00)
[2018-01-22] MEDS: DOCUSATE SODIUM 50 MG/SENNA 8.6 MG TAB PO SCH ×2 (08:14→20:48)
[2018-01-22] MEDS: FAMOTIDINE 20 MG TAB NG SCH ×2 (08:14→20:49)
[2018-01-22] MEDS: NYSTATIN SUSP 500,000 U/5 ML CUP SWISH-SWAL SCH ×4 (08:14→20:48)
[2018-01-22] MEDS: ENOXAPARIN SODIUM 30 MG/0.3 ML SYRINGE SQ SCH ×2 (08:15→20:50)
[2018-01-22] MEDS: LACTULOSE SYRUP 20 GM/30 ML CUP PO SCH (08:16)
[2018-01-22] MEDS: IBUPROFEN 600 MG TAB PO PRN ×2 (08:22→18:01)
[2018-01-22] MEDS: SODIUM CHLORIDE 0.9% FLUSH 10 ML FLUSH IV FLUSH SCH ×2 (09:00→21:00)
[2018-01-22] MEDS: HYDROCORTISONE 1% CREAM 30 GM TOPICAL SCH ×2 (10:00→18:00)
[2018-01-22] MEDS: SILVER SULFADIAZINE 1% CR 50 GM JAR TOP SCH (10:30)
[2018-01-22] MEDS: REMOVE OLD DURAGESIC (FENTANYL) PATCH T-DERMAL SCH (11:00)
[2018-01-22] MEDS: fentaNYL 75 MCG/HR PATCH T-DERMAL SCH (11:04)
[2018-01-22 12:00] VITALS: BP 109/65; PULSE 79; RESP 16; TEMP 97.6; O2SAT 99
[2018-01-22] MEDS ORDERED: PREG25 PO (12:10)
[2018-01-22] MEDS ORDERED: APIX2.5T PO (12:18)
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
[2018-01-22 16:00] VITALS: BP 111/67; PULSE 80; RESP 16; TEMP 97.7; O2SAT 97
[2018-01-22 20:00] VITALS: BP 130/73; PULSE 78; RESP 19; TEMP 98; O2SAT 97
[2018-01-23 00:01] VITALS: BP 121/69; PULSE 75; RESP 18; TEMP 97.7; O2SAT 96
[2018-01-23] MEDS: METHOCARBAMOL 500 MG TAB PO SCH ×3 (00:23→15:13)
[2018-01-23] MEDS: HYDROCORTISONE 1% CREAM 30 GM TOPICAL SCH ×2 (02:00→09:25)
[2018-01-23] MEDS: oxyCODONE/ACETAMINOPHEN 10 MG/325 MG TAB PO PRN ×7 (03:13→21:18)
[2018-01-23] MEDS: PREGABALIN 25 MG CAP PO SCH ×3 (06:16→21:17)
[2018-01-23 06:37] LABS: CREATININE 0.75 MG/DL (0.50-1.00)
--- NOTE | 2018-01-23 06:41 | PD.ORT.PN ---
Subjective Subjective Remarks POD 15 s/p ORIF left olecranon fx doing well. reports soreness but overall resting comfortably Objective Vitals Vital Signs Date Time Temp Pulse Resp B/P (MAP) Pulse Ox O2 Delivery O2 Flow Rate FiO2 01/23/18 00:01 97.7 75 18 121/69 (86) 96 01/22/18 20:00 98.0 78 19 130/73 (92) 97 01/22/18 16:00 97.7 80 16 111/67 (82) 97 01/22/18 14:55 20 01/22/18 12:04 20 01/22/18 12:00 97.6 79 16 109/65 (80) 99 01/22/18 09:22 18 01/22/18 09:22 18 01/22/18 08:00 97.8 90 16 108/56 (73) 94 I/O 01/22/18 01/22/18 01/22/18 01/23/18 01/23/18 01/23/18 07:00 15:00 23:00 07:00 15:00 23:00 Intake Total 600 ml 1200 ml 320 ml Balance 600 ml 1200 ml 320 ml Intake Oral 600 ml 1200 ml 320 ml # Voids 4 5 6 # Bowel Movements 0 0 Result Diagram: 01/23/18 0452 Imaging Last 24 hours Impressions Chest X-Ray 01/06/18 0600 Signed Impressions: Service Date/Time: Saturday, January 06, 2018 04:58 - CONCLUSION: Support apparatus in good position. Bilateral mostly basilar airspace disease has developed since January 03. Joel Meyers MD Objective Remarks Left upper extremity: incision healing well. clean and dry. no erythema. ROM of elbow from 3-120deg. nvi Assessment & Plan Assessment and Plan 1) Left Olecranon Fx s/p ORIF - POD 15 -PROM of elbow -sling -Active motion of all fingers -NWB -ortho surgeries complete -plan to keep ivan/sutures in place for today and remove tomorrow Trapeze for bed to help patient maneuver Orthopedically cleared for discharge to rehab once medically cleared and trauma service has completed surgeries on left above-knee amputation 2) Left AKA -managed by Dr Pelon Do,[facility] January 23, 2018 06:40
[2018-01-23 08:00] VITALS: BP 114/96; PULSE 70; RESP 16; TEMP 98.7; O2SAT 96
[2018-01-23] MEDS: SODIUM CHLORIDE 0.9% FLUSH 10 ML FLUSH IV FLUSH SCH ×2 (09:00→21:00)
[2018-01-23] MEDS: LACTULOSE SYRUP 20 GM/30 ML CUP PO SCH (09:00)
[2018-01-23] MEDS: SILVER SULFADIAZINE 1% CR 50 GM JAR TOP SCH (09:25)
[2018-01-23] MEDS: CHOLECALCIFEROL (VIT D3) 1000 UNIT TAB PO SCH (09:26)
[2018-01-23] MEDS: FAMOTIDINE 20 MG TAB NG SCH ×2 (09:26→21:18)
[2018-01-23] MEDS: DOCUSATE SODIUM 50 MG/SENNA 8.6 MG TAB PO SCH ×2 (09:26→21:18)
[2018-01-23] MEDS: NYSTATIN SUSP 500,000 U/5 ML CUP SWISH-SWAL SCH ×4 (09:26→21:18)
[2018-01-23 12:00] VITALS: BP 108/76; PULSE 88; RESP 16; TEMP 98; O2SAT 97
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
[2018-01-23 16:00] VITALS: BP 115/56; PULSE 92; RESP 16; TEMP 97.5; O2SAT 100
[2018-01-23 20:50] VITALS: BP 131/68; PULSE 82; RESP 16; TEMP 98.7; O2SAT 96
[2018-01-23] MEDS: ENOXAPARIN SODIUM 30 MG/0.3 ML SYRINGE SQ SCH (21:17)
[2018-01-24] MEDS: METHOCARBAMOL 500 MG TAB PO SCH ×3 (00:09→17:08)
[2018-01-24] MEDS: oxyCODONE/ACETAMINOPHEN 10 MG/325 MG TAB PO PRN ×6 (00:09→20:11)
[2018-01-24 00:45] VITALS: BP 132/69; PULSE 90; RESP 16; TEMP 98; O2SAT 98
[2018-01-24] MEDS: PREGABALIN 25 MG CAP PO SCH ×3 (05:56→21:27)
[2018-01-24] MEDS: HYDROCORTISONE 1% CREAM 30 GM TOPICAL SCH ×3 (05:58→18:00)
[2018-01-24 08:00] VITALS: BP 113/61; PULSE 72; RESP 17; TEMP 98.1; O2SAT 95
[2018-01-24] MEDS: ENOXAPARIN SODIUM 30 MG/0.3 ML SYRINGE SQ SCH ×2 (08:51→20:02)
[2018-01-24] MEDS: CHOLECALCIFEROL (VIT D3) 1000 UNIT TAB PO SCH (08:51)
[2018-01-24] MEDS: FAMOTIDINE 20 MG TAB NG SCH ×2 (08:51→20:02)
[2018-01-24] MEDS: NYSTATIN SUSP 500,000 U/5 ML CUP SWISH-SWAL SCH ×4 (08:52→20:02)
[2018-01-24] MEDS: DOCUSATE SODIUM 50 MG/SENNA 8.6 MG TAB PO SCH ×2 (08:52→20:03)
[2018-01-24] MEDS: LACTULOSE SYRUP 20 GM/30 ML CUP PO SCH (09:00)
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
[2018-01-24 12:00] VITALS: BP 115/70; PULSE 95; RESP 18; TEMP 97.4; O2SAT 98
[2018-01-24 16:00] VITALS: BP 103/62; PULSE 80; RESP 18; TEMP 98.1; O2SAT 97
[2018-01-24 19:30] VITALS: BP 120/73; PULSE 98; RESP 16; TEMP 98.6; O2SAT 97
[2018-01-24] MEDS: SODIUM CHLORIDE 0.9% FLUSH 10 ML FLUSH IV FLUSH SCH (21:00)
[2018-01-25 00:10] VITALS: BP 114/68; PULSE 74; RESP 16; TEMP 98.4; O2SAT 97
[2018-01-25] MEDS: oxyCODONE/ACETAMINOPHEN 10 MG/325 MG TAB PO PRN ×7 (01:41→22:35)
[2018-01-25] MEDS: HYDROCORTISONE 1% CREAM 30 GM TOPICAL SCH ×3 (01:43→16:36)
[2018-01-25] MEDS: PREGABALIN 25 MG CAP PO SCH ×3 (06:13→22:33)
[2018-01-25] MEDS: SILVER SULFADIAZINE 1% CR 50 GM JAR TOP SCH (06:14)
[2018-01-25 08:00] VITALS: BP 106/62; PULSE 78; RESP 18; TEMP 97.7; O2SAT 98
[2018-01-25] MEDS: FAMOTIDINE 20 MG TAB NG SCH ×2 (08:44→22:32)
[2018-01-25] MEDS: METHOCARBAMOL 500 MG TAB PO SCH ×3 (08:45→16:36)
[2018-01-25] MEDS: CHOLECALCIFEROL (VIT D3) 1000 UNIT TAB PO SCH (08:45)
[2018-01-25] MEDS: ENOXAPARIN SODIUM 30 MG/0.3 ML SYRINGE SQ SCH ×2 (08:45→18:59)
[2018-01-25] MEDS: LACTULOSE SYRUP 20 GM/30 ML CUP PO SCH (08:45)
[2018-01-25] MEDS: NYSTATIN SUSP 500,000 U/5 ML CUP SWISH-SWAL SCH ×4 (08:45→22:33)
[2018-01-25] MEDS: DOCUSATE SODIUM 50 MG/SENNA 8.6 MG TAB PO SCH ×2 (08:45→22:32)
[2018-01-25] MEDS: SODIUM CHLORIDE 0.9% FLUSH 10 ML FLUSH IV FLUSH SCH ×2 (08:45→22:33)
[2018-01-25] MEDS: IBUPROFEN 600 MG TAB PO PRN ×2 (08:49→18:58)
[2018-01-25] MEDS: REMOVE OLD DURAGESIC (FENTANYL) PATCH T-DERMAL SCH (11:00)
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
[2018-01-25] MEDS: fentaNYL 75 MCG/HR PATCH T-DERMAL SCH (11:37)
[2018-01-25 12:00] VITALS: BP 110/62; PULSE 83; RESP 19; TEMP 97.3; O2SAT 96
[2018-01-25 16:00] VITALS: BP 111/70; PULSE 76; RESP 18; TEMP 97.8; O2SAT 96
[2018-01-25 19:35] VITALS: BP 117/75; PULSE 82; RESP 18; TEMP 98; O2SAT 96
[2018-01-26] VITALS: BP 114/59; PULSE 78; RESP 18; TEMP 98.3; O2SAT 99
[2018-01-26] MEDS: METHOCARBAMOL 500 MG TAB PO SCH ×2 (00:28→08:14)
[2018-01-26] MEDS: SILVER SULFADIAZINE 1% CR 50 GM JAR TOP SCH ×2 (01:30→08:15)
[2018-01-26] MEDS: HYDROCORTISONE 1% CREAM 30 GM TOPICAL SCH ×2 (01:39→08:15)
[2018-01-26] MEDS: oxyCODONE/ACETAMINOPHEN 10 MG/325 MG TAB PO PRN ×2 (04:52→08:15)
[2018-01-26] MEDS: PREGABALIN 25 MG CAP PO SCH (06:09)
[2018-01-26] MEDS: LACTULOSE SYRUP 20 GM/30 ML CUP PO SCH (07:56)
[2018-01-26 08:00] VITALS: BP 113/57; PULSE 80; RESP 16; TEMP 98.3; O2SAT 99
[2018-01-26] MEDS: CHOLECALCIFEROL (VIT D3) 1000 UNIT TAB PO SCH (08:14)
[2018-01-26] MEDS: NYSTATIN SUSP 500,000 U/5 ML CUP SWISH-SWAL SCH (08:14)
[2018-01-26] MEDS: FAMOTIDINE 20 MG TAB NG SCH (08:14)
[2018-01-26] MEDS: IBUPROFEN 600 MG TAB PO PRN (08:14)
[2018-01-26] MEDS: DOCUSATE SODIUM 50 MG/SENNA 8.6 MG TAB PO SCH (08:14)
[2018-01-26] MEDS: ENOXAPARIN SODIUM 30 MG/0.3 ML SYRINGE SQ SCH (08:14)
[2018-01-26] MEDS: SODIUM CHLORIDE 0.9% FLUSH 10 ML FLUSH IV FLUSH SCH (08:15)
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
== END 2018-01-26 10:02 | disposition home or self-care (01) | DRG 957 ==
LOC: HOR 17:58 → NEDA 19:16 → EDBD 19:16 → N03B 20:33 → N06B 01-08 09:45
PROVIDERS: ADMIT Surgery; ATTEND Surgery
PROC: 02HV33Z Insertion of Infusion Device into Superior Vena Cava, Percutaneous Approach (ICD-10-PCS; 2018-01-03)
PROC: 30233M1 Transfusion of Nonautologous Plasma Cryoprecipitate into Peripheral Vein, Percutaneous Approach (ICD-10-PCS; 2018-01-03)
PROC: 30233N1 Transfusion of Nonautologous Red Blood Cells into Peripheral Vein, Percutaneous Approach (ICD-10-PCS; 2018-01-03)
PROC: 6A551Z2 Pheresis of Platelets, Multiple (ICD-10-PCS; 2018-01-03)
PROC: 3E10X8Z Irrigation of Skin and Mucous Membranes using Irrigating Substance (ICD-10-PCS; 2018-01-03)
PROC: 5A1945Z Respiratory Ventilation, 24-96 Consecutive Hours (ICD-10-PCS; 2018-01-03)
PROC: 0BH17EZ Insertion of Endotracheal Airway into Trachea, Via Natural or Artificial Opening (ICD-10-PCS; 2018-01-03)
PROC: 0Y6D0Z3 Detachment at Left Upper Leg, Low, Open Approach (ICD-10-PCS; principal; 2018-01-03 18:53)
PROC: 0JQH0ZZ Repair Left Lower Arm Subcutaneous Tissue and Fascia, Open Approach (ICD-10-PCS; 2018-01-06)
PROC: 0HDJXZZ Extraction of Left Upper Leg Skin, External Approach (ICD-10-PCS; 2018-01-06)
PROC: 0JBH0ZZ Excision of Left Lower Arm Subcutaneous Tissue and Fascia, Open Approach (ICD-10-PCS; 2018-01-06 10:15)
PROC: 0PSL04Z Reposition Left Ulna with Internal Fixation Device, Open Approach (ICD-10-PCS; 2018-01-08)
PROC: 3E10X8Z Irrigation of Skin and Mucous Membranes using Irrigating Substance (ICD-10-PCS; 2018-01-10)
PROC: 3E10X8Z Irrigation of Skin and Mucous Membranes using Irrigating Substance (ICD-10-PCS; 2018-01-14)
DX: S78.12 Partial traumatic amputation at level between hip and knee (principal); J96.90 Respiratory failure, unspecified, unspecified whether with hypoxia or hypercapnia; S06.9X9A Unspecified intracranial injury with loss of consciousness of unspecified duration, initial encounter; S72.402B Unspecified fracture of lower end of left femur, initial encounter for open fracture type I or II; T79.4XXA Traumatic shock, initial encounter; S82.402B Unspecified fracture of shaft of left fibula, initial encounter for open fracture type I or II; S82.202B Unspecified fracture of shaft of left tibia, initial encounter for open fracture type I or II; G54.6 Phantom limb syndrome with pain; B37.0 Candidal stomatitis; S01.01XA Laceration without foreign body of scalp, initial encounter; S82.142B Displaced bicondylar fracture of left tibia, initial encounter for open fracture type I or II; S52.022A Displaced fracture of olecranon process without intraarticular extension of left ulna, initial encounter for closed fracture; S51.812A Laceration without foreign body of left forearm, initial encounter; V23.5XXA Motorcycle passenger injured in collision with car, pick-up truck or van in traffic accident, initial encounter; Y92.488 Other paved roadways as the place of occurrence of the external cause; Y93.89 Activity, other specified; S30.810A Abrasion of lower back and pelvis, initial encounter; S30.811A Abrasion of abdominal wall, initial encounter; S40.812A Abrasion of left upper arm, initial encounter; S40.811A Abrasion of right upper arm, initial encounter
CPT/HCPCS: 36430; 36556; 36600; 70450; 71045; 71260; 72125; 72170; 73070; 73090; 73551; 73552; 74177; 76000; 76937; 80048; 80053; 80202; 82565; 82805; 83605; 83735; 84100; 84132; 84155; 85007; 85014; 85018; 85025; 85027; 85384; 85610; 85730; 86850; 86900; 86901; 86920; 86965; 87015; 87070; 87077; 87102; 87116; 87176; 87185; 87186; 87205; 87206; 87641; 88307; 88311; 93005; 94003; 94150; 94640; 94664; C1713; C9113; J0131; J0330; J0690; J1100; J1580; J1650; J1956; J2175; J2250; J2270; J2370; J2405; J2710; J2765; J3010; J3370; J3480; J7030; J7040; J7050; J7120; P9016; P9035; P9045; Q0163; Q9967